=== PATIENT | female | born 1955 | race Caucasian/White ===

== ENCOUNTER 2018-11-29 15:17 | Inpatient (IN) ==
--- NOTE | 2018-11-29 21:18 | Internal Med History&Physical ---
Date of Encounter: 11/29/18 Time of Encounter: 21:18 Internal Medicine - H&P: HPI Chief complaint: Acute hypoxic respiratory failure Admitted From: Hospital to Hospital Transfer Plans for Post Hospital Care: Home History of present illness: Ms. Sal is a 63 year old female Patient presented to [facility] emergency department with worsening shortness of breath. 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 She is to start treatment on 12/02. She also has a history of COPD and congestive heart failure. She is oxygen dependent on 2-3 liters. She has needed more and more oxygen lately. She denies cough. Her shortness of breath began after she woke up in the morning. She is a 2 pack per day smoker. She has had similar symptoms in the past, and called an ambulance to take her to the hospital. Initial Labs at [facility]: Lactic acid 4.2 ->3.3 First ABG: PH 7.26, PCO2 52, PaO2 205 Second ABG: PH 7.4, PCO2 41, PO2 108 CBC: White count 18.8, hemoglobin 12.5, hematocrit 39, platelets 127 BMP: Sodium 135, potassium 4.7, chloride 98, bicarbonate 20, BUN 18, creatinine 0.95, glucose 377, calcium 8.7 Liver panel: Total bilirubin 0.6, albumin 3.1, alkaline phosphatase 75, AST 25, ALT 37 BNP 16,867.8 Troponin: 0.092 -> 0.25 (normal range 0.000- 0.056) Urinalysis: Negative nitrite, trace leukocyte esterase, 2+ bacteria, EKG: Sinus tachycardia rate 121 QTC 442. No ischemic changes Imaging CT angiogram chest: No evidence of pulmonary embolus, improved pericardial effusion, resolution of right pleural effusion and left upper lobe interstitial infiltrate, right upper lobe nodule and mediastinal hilar lymphadenopathy unchanged Patient was put on BiPAP and after 2 hours had improvement in her ABG. She is given IV steroids, breathing treatments, vancomycin and Zosyn. Patient's troponin increased, but she denies chest pain. She was given Lovenox. She has history of cancer, and sees oncology here at [place]. She requested transfer to [facility] for this reason. Upon my evaluation patient was resting comfortably in the hospital bed in no acute distress. She denies chest pain, abdominal pain, nausea, vomiting, diarr hea and constipation. She states that her symptoms have improved since she first arrived to the ER. She states that she has multiple family members with a diabetes, and her father had heart disease. She is a full code. Past Med Surg Social Fam HX - Past Medical History Medical history: atrial fibrillation, COPD, hypertension, myocardial infarction Psychiatric history: no psych history - Past Surgical History Additional surgical history: Tubal - Social History Smoking Status: Current every day smoker Alcohol use: none Drug use: none Internal Medicine - H&P: Meds Acetaminophen [Tylenol] 2 cap PO Q4-6H PRN 11/07/18 [History] Atorvastatin [Lipitor] 10 mg PO HS 11/07/18 [History] Budesonide/Formoterol 160/4.5 [Symbicort 160/4.5] 2 puff IH BIDR 11/07/18 [History] Diltiazem HCl [Diltiazem ER] 120 mg PO DAILY 11/07/18 [History] Duloxetine HCl [Cymbalta] 60 mg PO DAILY 11/07/18 [History] Folic Acid 1 mg PO DAILY #30 tablet 11/07/18 [Rx] Gabapentin 600 mg PO Q8H 11/07/18 [History] Ipratropium/Albuterol Neb [Duoneb] 3 ml IH QID PRN 11/07/18 [History] Lidocaine/Prilocaine [Emla] 1 appl TP AD #30 gm 11/07/18 [Rx] Metoprolol Succinate [Kapspargo Sprinkle] 25 mg PO BID 11/07/18 [History] Promethazine [Phenergan] 25 mg PO Q6HR PRN #30 tablet 11/07/18 [Rx] Sennosides/Docusate Sodium [Senna-Docusate Sodium Tablet] 1 each PO BID 11/07/18 [History] Fluconazole [Diflucan] 100 mg PO DAILY 10 Days #10 tablet 11/18/18 [Rx] Magic Mouthwash [Magic Mouthwash BLM] 10 ml PO QID PRN #240 ml 11/21/18 [Rx] Apixaban [Eliquis] 5 mg PO BID 30 Days #60 tablet 11/27/18 [Rx] Furosemide [Lasix] 20 mg PO DAILY #5 tablet 11/27/18 [Rx] Montelukast [Singulair] 10 mg PO HS 30 Days #30 tablet 11/27/18 [Rx] Tramadol HCl [Ultram] 50 mg PO TID PRN 15 Days #45 tab 11/27/18 [Rx] dilTIAZem HCl [Diltiazem 24Hr ER] 120 mg PO DAILY 30 Days #30 cap.er.24h 11/27/18 [Rx] Allergy/AdvReac Type Severity Reaction Status Date / Time No Known Allergies Allergy Verified 11/21/18 13:15 All Systems PM: A 10-system review of systems was performed and is negative for pertinent findings except as documented above in the HPI. - Constitutional Vitals: Temp Pulse Resp BP Pulse Ox 98.7 F 90 18 112/71 98 11/29/18 18:46 11/29/18 18:46 11/29/18 18:46 11/29/18 18:46 11/29/18 18:46 General appearance: Present: cooperative, A&O X 3, pleasant, no acute distress, answers questions appropriately Exam: - - Head Head exam: Present: normal inspection - Eye Eye exam: Present: EOMI, normal appearance - Respiratory Respiratory exam: Present: wheezes. Absent: CTAB, rales, respiratory distress, rhonchi - Cardiovascular Cardiovascular exam: Present: RRR. Absent: diastolic murmur, systolic murmur - GI/Abdominal GI/Abdominal exam: Present: normal bowel sounds, soft. Absent: tenderness - Extremities Exam Extremities exam: Present: pedal edema, warm, radial pulses palpable and symmetrical. Absent: calf tenderness, tenderness Additional comments: 1-2+ pitting edema bilaterally in lower extremities - Neurological Exam Neurological exam: Present: no focal deficits, strengths equal and symetr throughout. Absent: motor sensory deficit, facial droop, speech deficit - Skin Skin exam: Present: dry, normal color, warm - Assessment and Plan (1) Acute respiratory failure with hypoxia Current Visit: Yes Status: Acute Assessment and plan: Likely secondary to COPD exacerbation, patient has a significant history of smoking. Patient's symptoms improved with breathing treatments and BiPAP. Patient also has a known history of metastatic lung cancer. Lactic acid on repeat increased form Nell's values. Not suspicious of infection at this time, will hold off on antibiotics. I do not see that blood cultures were ordered at [facility], but she did received a dose of vanco and zosyn. I will order blood cultures now, and hold off on additional antibiotics. Imaging does not indicate infection of lungs. Repeat lactic acid level IV fluid hydration with care in regards to her suspected history of CHF Continue oxygen supplementation as needed Continue BiPAP Continue breathing treatments Start IV azithromycin IV steroids Continuous pulse ox (2) COPD exacerbation Current Visit: Yes Status: Acute Assessment and plan: Long history of smoking. Oxygen and BiPAP as needed Continue breathing treatments IV steroids IV azithromycin Continuous pulse ox (3) Elevated troponin Current Visit: Yes Status: Acute Assessment and plan: Troponin elevated at 0.25, patient denies chest pain, EKG non-ischemic. Likely secondary to demand ischemia. Patient did recently have a malignant pericardial effusion drained 10/27/18 as well. She was given a dose of lovenox for suspected NSTEMI. She does take eliquis at home for atrial fibrillation. Echocardiogram from 11/08/18: Impressions: Technically sub-optimal due to poor echocardiographic windows. LVEF 60-65%. Normal left ventricular diastolic function. Normal LV chamber size, wall thickness and function. The right ventricle was not well visualized but appeared grossly normal in size and function No evidence of pulmonary hypertension. No significant valvular dysfunction. Cardiac monitoring Continue to trend troponin Continue anticoagulation Cardiology consultation. (4) Chronic back pain Current Visit: Yes Status: Acute Assessment and plan: Pain management as needed. Qualifiers: Back pain location: low back pain Back pain laterality: bilateral Sciatica presence: unspecified whether sciatica present Qualified Code(s): M54.5 - Low back pain; G89.29 - Other chronic pain (5) Non-small cell lung cancer (NSCLC) Current Visit: No Status: Acute Assessment and plan: Management as per oncology Qualifiers: Laterality: unspecified laterality Qualified Code(s): C34.90 - Malignant neoplasm of unspecified part of unspecified bronchus or lung (6) Nicotine dependence Current Visit: Yes Status: Acute Assessment and plan: Patient is a heavy smoker up to 2 packs per day. She had been trying to quit, but after she was diagnosed with lung cancer, she restarted smoking. Nicotine patch Qualifiers: Nicotine product type: cigarettes Substance use status: other nicotine- induced disorder Qualified Code(s): F17.218 - Nicotine dependence, cigarettes, with other nicotine-induced disorders (7) Hyperglycemia Current Visit: Yes Status: Acute Assessment and plan: Patient denies history of diabetes. Elevated blood sugar on labs from Nell A1c in the AM Low dose sliding scale insulin NPO Monitor sugars Q6H (8) DVT prophylaxis Current Visit: Yes Status: Acute Assessment and plan: Patient given lovenox for suspected NSTEMI. Elevated troponin, with no ischemic changes on EKG. Continue lovenox - Time Spent With Patient Total time spent is greater than 50% in coordination of care (as documented) at patient's floor/unit and/or counseling patient: Greater than 35 minutes
[2018-11-29] MEDS ORDERED: Naloxone 0.4 MG/ML INJ IVP PRN (22:01)
[2018-11-29] MEDS ORDERED: Albuterol 2.5 MG/3 ML NEBULIZER IH PRN (22:06)
[2018-11-29] MEDS: Ipratropium/Albuterol Neb 3 ML IH SCH (22:36)
[2018-11-29] MEDS ORDERED: Acetaminophen 325 MG TABLET PO PRN (22:37)
[2018-11-29] MEDS ORDERED: 0.9 % Sodium Chloride 1,000 ML IVC ONE (22:55)
[2018-11-29] MEDS: Nicotine 21 MG PATCH.TD24 TD SCH (22:58)
[2018-11-29] MEDS: Azithromycin 500 MG in D5% in Water 250 ML IVPB SCH (22:59)
[2018-11-29] MEDS: MethylPREDNISolone 40 MG/ML VIAL IVP SCH (23:00)
[2018-11-29] MEDS: traMADol 50 MG TABLET PO PRN (23:00)
[2018-11-29] MEDS ORDERED: *HR* Dextrose 50 % in Water (Syg) 50 ML SYRINGE IVP PRN (23:38)
[2018-11-29] MEDS ORDERED: Dextrose Gel 15 GM/37.5 ML TUBE PO PRN ×2 (23:38)
[2018-11-29] MEDS ORDERED: D5% in Water 1,000 ML IVC PRN (23:38)
[2018-11-30] MEDS: Insulin LISPRO 300 UNITS/3 ML VIAL SQ SCH ×4 (01:14→18:03)
[2018-11-30] MEDS: Ipratropium/Albuterol Neb 3 ML IH SCH ×4 (04:17→22:32)
[2018-11-30] MEDS: MethylPREDNISolone 40 MG/ML VIAL IVP SCH ×4 (05:48→23:19)
[2018-11-30] MEDS ORDERED: *HR* Enoxaparin 80 MG/0.8 ML SYRINGE SQ SCH (06:00)
[2018-11-30 06:36] LABS: Hemoglobin 11.1 g/dL (11.5-15.4); Mean Corpuscular HGB Conc 32.6 g/dL (31.6-35.5); Mean Corpuscular Hemoglobin 31.6 pg (28.0-33.3); Mean Corpuscular Volume 96.9 fL (83.0-100.0); Red Blood Count 3.51 M/mcL (3.82-4.97); Red Cell Distribution Width 14.8 % (11.5-14.5); White Blood Count 6.9 K/mcL (4.3-11.1)
[2018-11-30 06:37] LABS: Platelet Count 59 K/mcL (140-400)
[2018-11-30 06:54] LABS: BUN/Creatinine Ratio 39 (6-26); Blood Urea Nitrogen 20 mg/dL (8-23); Calcium 9.2 mg/dL (8.6-10.3); Carbon Dioxide 26 mEq/L (23-29); Chloride 102 mEq/L (98-107); Glucose 196 mg/dL (70-105); Osmolality,Calculated 294 (280-300); Potassium 4.1 mEq/L (3.5-5.1); Sodium 138 mEq/L (136-145); eGFR For African Americans > 60 (> 60); eGFR For Non-African Americans > 60 (> 60)
[2018-11-30] MEDS: Nicotine 21 MG PATCH.TD24 TD SCH (08:07)
--- NOTE | 2018-11-30 09:00 | Cardiology Consult Note ---
<Osvaldo Peraza R - Last Filed: 11/30/18 09:39> Date of Encounter: 11/30/18 Time of Encounter: 08:59 Assessment and Plan (1) Elevated troponin Current Visit: Yes Status: Acute Troponins 0.18, 0.20--flat and adynamic. Type I vs Type II NSTEMI. Will trend for total of 3. Pt presented with worsening dyspnea. Check BNP. Denies chest pain. Has known lung cancer with metastasis to brain. Recently had a port placed to begin systemic chemotherapy. She is to start treatment on 12/02. TTE 11/08/18: EF 60-65%. Normal LVDD. Normal LV chamber size, wall thickness and function. The RV was not well visualized but appeared grossly normal in size and function. No evidence of phtn. No significant valvular dysfunction. Repeat limited TTE to evaluate EF. Prognosis is guarded given her lung cancer with mets. Reviewed oncology notes as well. Recommend considering palliative consult to discuss code status. Recommend medical management. Pt is not a candidate for invasive evaluation. PLT count 59k, thrombocytopenic. Will stop therapeutic Lovenox. Continue ASA. Add statin and BB. Will discuss and review with Dr. Guzman. Discussion w patient/family: The assessment and plan as outlined above was discussed with the patient and/or family members who expressed understanding and agreement. All questions were answered. Thank you for involving us in the care of your patient. Please call with any questions. I will discuss all the above with Dr. Guzman and make changes as necessary. History of Present Illness Consult date: 11/30/18 Requesting physician: Carlos Mercedes Consult reason: elevated troponin Chief complaint: dyspnea History of present illness: Ms. Sal is a 63 year old female with PMH of cancer of the lung with metastasis to brain, and recently had a port placed to begin systemic chemotherapy. She is to start treatment on 12/02. She also has a history of COPD and congestive heart failure. She is oxygen dependent on 2-3 liters. She has needed more and more oxygen lately. She denies cough. Her shortness of breath began after she woke up in the morning. She is a 2 pack per day smoker. CTA chest no evidence of pulmonary embolus, improved pericardial effusion, resolution of right pleural effusion and left upper lobe interstitial infiltrate, right upper lobe nodule and mediastinal hilar lymphadenopathy unchanged. Troponins 0.18, 0.20. Cardiology consulted for further recs. Pt denies chest pain. Prior CV testing: TTE 11/08/18: EF 60-65%. Normal left ventricular diastolic function. Normal LV chamber size, wall thickness and function. The RV was not well visualized but appeared grossly normal in size and function. No evidence of phtn. No significant valvular dysfunction. Past Med Surg Social Fam HX - Past Medical History Medical history: atrial fibrillation, COPD, hypertension, myocardial infarction Psychiatric history: no psych history - Past Surgical History Additional surgical history: Tubal - Social History Smoking Status: Current every day smoker Alcohol use: none Drug use: none Medications and Allergies Budesonide/Formoterol 160/4.5 [Symbicort 160/4.5] 2 puff IH BIDR 11/07/18 [History] Diltiazem HCl [Diltiazem ER] 120 mg PO DAILY 11/07/18 [History] Duloxetine HCl [Cymbalta] 60 mg PO DAILY 11/07/18 [History] Gabapentin 600 mg PO Q8H 11/07/18 [History] Ipratropium/Albuterol Neb [Duoneb] 3 ml IH QID PRN 11/07/18 [History] Promethazine [Phenergan] 25 mg PO Q6HR PRN #30 tablet 11/07/18 [Rx] Magic Mouthwash [Magic Mouthwash BLM] 10 ml PO QID PRN #240 ml 11/21/18 [Rx] Apixaban [Eliquis] 5 mg PO BID 30 Days #60 tablet 11/27/18 [Rx] Furosemide [Lasix] 20 mg PO DAILY #5 tablet 11/27/18 [Rx] Montelukast [Singulair] 10 mg PO HS 30 Days #30 tablet 11/27/18 [Rx] Tramadol HCl [Ultram] 50 mg PO TID PRN 15 Days #45 tab 11/27/18 [Rx] Losartan/Hydrochlorothiazide [Losartan-Hctz 50-12.5 mg Tab] 1 each PO DAILY 11/30/18 [History] Lovastatin [Altoprev] 40 mg PO DAILY 11/30/18 [History] Metoprolol [Lopressor] 25 mg PO DAILY 11/30/18 [History] Tizanidine HCl [Zanaflex] 2 mg PO Q8H PRN 11/30/18 [History] traZODone [TraZODone] 50 mg PO HS 11/30/18 [History] Allergy/AdvReac Type Severity Reaction Status Date / Time No Known Allergies Allergy Verified 11/30/18 13:31 All Systems Review: The remainder of the systems were reviewed and are negative - Cardiovascular Cardiovascular: as per HPI, dyspnea at rest, dyspnea on exertion - Respiratory Respiratory: dyspnea Physical Examination Vital Signs, Last 4 Hours Temp Pulse Resp BP Pulse Ox 11/30/18 07:55 98.6 F 85 16 139/75 100 11/30/18 05:20 97.6 F 72 20 125/66 100 Vital Signs Temp Pulse Resp BP Pulse Ox 11/30/18 07:55 98.6 F 85 16 139/75 100 11/30/18 05:20 97.6 F 72 20 125/66 100 11/30/18 04:17 14 100 11/30/18 02:37 13 100 11/30/18 00:52 96.7 F L 80 16 118/73 99 11/29/18 22:36 20 99 11/29/18 21:13 98 11/29/18 18:46 98.7 F 90 18 112/71 98 Intake and Output 11/29/18 11/30/18 11/30/18 23:59 07:59 15:59 Intake Total 0 / 250 1250 / 1250 Output Total 100 / 100 Balance 0 / 250 1250 / 1150 -100 / 1150 Intake: IV Fluids 1250 / 1250 0.9 % Sodium Chloride 1,000 ML 1000 / 1000 @ 250 mls/hr IVC .Q4H ONE Rx#: [id number] Zithromax 500 mg In Dextrose 5% 250 / 250 250 ML @ 252 mls/hr IVPB Q24H [facility] Rx#:[id number] Oral 0 / 0 0 / 0 Output: Urine 100 / 100 Other: Stool Size Large Stool Consistency formed Stool Color Brown # Voids 0 # Urine Diapers 1 1 # Bowel Movements 1 Weight 75.8 kg Blood Glucose* 209 General: Conversant HEENT: Atraumatic, Normocephaly, Mucus Membranes Moist Neck: No JVD, Normal carotid pulses Cardiac: Reg Rate and Rhythm, Normal S1 and S2, No Murmur Lungs: Other (diminished) Neuro: Alert and responsive, No focal deficits noted Abdomen: Soft, Non-Tender Skin: No rashes noted on visualized skin Musculoskeletal: No Chest Wall Tenderness Extremities: No Clubbing, No Cyanosis, No Edema, Normal Pulses Results 11/30/18 06:10 11/30/18 06:10 Lab Results 11/29/18 11/30/18 11/30/18 22:21 06:10 06:10 WBC 6.9 Hgb 11.1 L Hct 34.0 L Plt Count 59 L Sodium 138 Potassium 4.1 Chloride 102 Carbon Dioxide 26 BUN 20 Creatinine 0.51 L Glucose 196 H Calcium 9.2 Troponin I 0.18 H* 11/30/18 06:10 WBC Hgb Hct Plt Count Sodium Potassium Chloride Carbon Dioxide BUN Creatinine Glucose Calcium Troponin I 0.20 H* Short CBC 11/30/18 Range/Units 06:10 WBC 6.9 (4.3-11.1) K/mcL Hgb 11.1 L (11.5-15.4) g/dL Hct 34.0 L (35.3-44.9) % Plt Count 59 L (140-400) K/mcL BMP 11/30/18 Range/Units 06:10 Sodium 138 (136-145) mEq/L Potassium 4.1 (3.5-5.1) mEq/L Chloride 102 (98-107) mEq/L Carbon Dioxide 26 (23-29) mEq/L BUN 20 (8-23) mg/dL Creatinine 0.51 L (0.60-1.20) mg/dL Glucose 196 H (70-105) mg/dL Calcium 9.2 (8.6-10.3) mg/dL Cardiac Enzymes 11/30/18 11/29/18 Range/Units 06:10 22:21 Troponin I 0.20 H* 0.18 H* (< 0.04) ng/mL Active Medications Acetaminophen (Tylenol) 650 mg PO Q6HR PRN PRN Reason: Mild Pain/Fever Stop: 05/31/19 22:38 Albuterol Sulfate (Proventil Neb) 2.5 mg IH Q2H PRN PRN Reason: Shortness Of Breath/Wheezing Stop: 05/31/19 22:07 Albuterol/Ipratropium (Duoneb) 3 ml IH QIDR [facility] Stop: 05/31/19 23:01 Last Admin: 11/30/18 04:17 Dose: 3 ml Documented by: Albuterol/Ipratropium (Duoneb) 3 ml IH QID PRN PRN Reason: Wheezing Stop: 06/01/19 09:14 Aspirin (Aspirin) 81 mg PO DAILY IL[facility] Stop: 06/02/19 09:01 Budesonide/Formoterol Fumarate (Symbicort) 2 puff IH BIDR [facility]; Protocol Stop: 06/01/19 10:01 Dextrose/Water (Dextrose 50% (Syg)) 25 ml IVP AD PRN PRN Reason: Hypoglycemia Stop: 05/31/19 23:39 Enoxaparin Sodium (Lovenox) 70 mg SQ Q12HCO [facility]; Protocol Stop: 06/01/19 06:01 Last Admin: 11/30/18 05:48 Dose: 70 mg Documented by: Glucagon (Glucagen) 1 mg IM ONCE PRN PRN Reason: Hypoglycemia Stop: 05/31/19 23:39 Glucose (Gluctose) 15 gm PO ONCE PRN PRN Reason: Hypoglycemia Stop: 05/31/19 23:39 Glucose (Gluctose) 30 gm PO ONCE PRN PRN Reason: Hypoglycemia Stop: 05/31/19 23:39 Azithromycin 500 mg/ Dextrose 250 mls @ 252 mls/hr IVPB Q24H [facility] Stop: 05/31/19 23:01 Last Infusion: 11/30/18 00:00 Dose: Infused Documented by: Dextrose (Dextrose 5%) 1,000 mls @ 100 mls/hr IVC .Q10H PRN PRN Reason: HYPOGLYCEMIA Stop: 05/31/19 23:39 Sodium Chloride (0.9 % Sodium Chloride) 1,000 mls @ 75 mls/hr IVC .[id number] [facility] Stop: 06/01/19 09:16 Ceftriaxone Sodium 1,000 mg/ (Sterile Water) 20 mls @ 600 mls/hr IVP Q24H [facility] Stop: 06/01/19 10:01 Insulin Human Lispro (Humalog) 0 units SQ Q6HR [facility]; Protocol Stop: 06/01/19 00:01 Methylprednisolone (Solu-Medrol) 40 mg IVP Q6HR [facility] Stop: 06/01/19 00:01 Last Admin: 11/30/18 05:48 Dose: 40 mg Documented by: Montelukast Sodium (Singulair) 10 mg PO HS [facility] Stop: 06/01/19 21:01 Naloxone HCl (Narcan) 0.4 mg IVP Q2MPRN PRN PRN Reason: SEE COMMENTS Stop: 05/31/19 22:02 Nicotine (Nicoderm) 21 mg TD DAILY [facility] Stop: 05/31/19 22:16 Last Admin: 11/30/18 08:07 Dose: Not Given Documented by: Non-Formulary Medication (Diltiazem Hcl [Diltiazem Er]) 120 mg PO DAILY [facility] Stop: 06/01/19 09:16 Non-Formulary Medication (Duloxetine Hcl [Cymbalta]) 60 mg PO DAILY [facility] Stop: 06/02/19 09:01 Non-Formulary Medication (Metoprolol Succinate [Kapspargo Sprinkle]) 25 mg PO BID [facility] Stop: 06/01/19 21:01 Tramadol HCl (Ultram) 50 mg PO Q6HR PRN PRN Reason: Moderate Pain Stop: 05/31/19 22:38 Last Admin: 11/29/18 23:00 Dose: 50 mg Documented by: - Imaging and Cardiology Echo: report reviewed - EKG Interpretation EKG results cardiology: personally reviewed (Sinus tach), other (12 hr tele AVG HR 77, SR) Consult Discharge Plan - Plan Referrals: Yamel Quinn, TELEMETRY TECHNICIAN [Primary Care Provider] - <Sabine Guzman - Last Filed: 11/30/18 17:21> Date of Encounter: 11/30/18 - Attending Attestation Patient was seen and evaluated independently by me. Findings, assessment and plan were discussed at length with patient, questions answered. Agree with nurse practitioner's/resident's documentation. Addition as follows, 63yoCF ho lung cancer w/ brain mets, PAF, ischemic infarct on recent brain MRI , ? CAD/VT, DM, HTN, COPD. P/w worsening dyspnea and hypoxemia. Consulted for trop peak 0.2. Tele SR, PVCs. BNP 556. TTE EF 60-65% Pt denied chest pain, palpitations, dizziness, LE edema. NC 4L, VSS, scattered rhonchi, RR, no LE edema. Labs mild anemia A: Mild troponin elevation, type II likely PAF, C score 5, unclear whether taking eliquis, curently SR Both ischemic infarct and brain METs on recent brain MRI Lung cancer w/ brain mets PVCs P: repeat ECG limited Echo check with hemonc regarding A/C given C score 5 but brain mets Sabine Guzman MD, PhD Assessment and Plan Discussion w patient/family: The assessment and plan as outlined above was discussed with the patient and/or family members who expressed understanding and agreement. All questions were answered. Thank you for involving us in the care of your patient. Please call with any questions. History of Present Illness History of present illness: Ms. Sal is a 63 year old female All Systems Review: The remainder of the systems were reviewed and are negative Physical Examination Vital Signs, Last 4 Hours Temp Pulse Resp BP Pulse Ox 11/30/18 16:16 16 96 11/30/18 14:31 98.6 F 72 16 129/71 96 Results 11/30/18 06:10 11/30/18 06:10 Lab Results 11/29/18 11/30/18 11/30/18 22:21 06:10 06:10 WBC 6.9 Hgb 11.1 L Hct 34.0 L Plt Count 59 L Sodium 138 Potassium 4.1 Chloride 102 Carbon Dioxide 26 BUN 20 Creatinine 0.51 L Glucose 196 H Calcium 9.2 Troponin I 0.18 H* B-Natriuretic Peptide 11/30/18 11/30/18 11/30/18 06:10 06:10 13:37 WBC Hgb Hct Plt Count Sodium Potassium Chloride Carbon Dioxide BUN Creatinine Glucose Calcium Troponin I 0.20 H* 0.20 H* B-Natriuretic Peptide 556 H
[2018-11-30] MEDS ORDERED: Ipratropium/Albuterol Neb 3 ML IH PRN (09:13)
--- NOTE | 2018-11-30 09:18 | Internal Med Progress Note ---
Hospitalist Progress Note - Encounter Date of Encounter: 11/30/18 Time of Encounter: 09:18 - Subjective Interval History: Patient denies active chest pain with no active bleeding. Patient is hungry and asking for the food. She also appear slight agitated and not willing to talk much otherwise no acute distress. Review the lab with trending down lactate but trending up troponin. Raised BNP. Review the vitals. Patient denies fever chills nausea vomiting headache dizziness chest pain abdominal pain diarrhea. - Exam Vitals: Temp Pulse Resp BP Pulse Ox 98.6 F 85 16 139/75 100 11/30/18 07:55 11/30/18 07:55 11/30/18 07:55 11/30/18 07:55 11/30/18 07:55 Exam: General appearance: No acute distress, A&O X 3. Slight agitated upon asking medical health related question but is still answering few. Feel hungry and asking for the food Head exam: Atraumatic Eye exam: EOMI, PERRLA ENT exam: Moist oral mucosa Neck nontender, supple Respiratory exam: Decreased breath sounds bilaterally with rhonchi bilaterally. Cardiovascular exam: Regular rate and rhythm, no systolic murmur Abdominal exam: Soft, nontender, nondistended, positive bowel sounds Extremities exam: No calf tenderness, +1/2 bilateral pedal edema more on left side Skin-no rash, warm, dry, intact Neurological exam: Alert, awake, oriented 3, CN II-XII intact, no focal deficits. No facial droop. Normal speech. - Assessment and Plan (1) Acute respiratory failure with hypoxia Current Visit: Yes Status: Acute Assessment and Plan: Multiple factor. Likely secondary to COPD exacerbation, patient has a significant history of smoking/pneumonia, cardiac related as raised troponin Concern for sepsis due to raised lactate acid. Broader spectrum antibiotic vancomycin and Zosyn given at [facility]. On admission patient was on BiPAP but now on 2 L oxygen by nasal cannula. Continue IV steroid, oxygen supplementation, antibiotic Rocephin and Zithromax, nebulizer. Continuous pulse ox. (2) COPD exacerbation Current Visit: Yes Status: Acute Assessment and Plan: Long history of smoking.-Smoking cessation education Oxygen and BiPAP as needed Continue breathing treatments IV steroids IV azithromycin Continuous pulse ox (3) Elevated troponin Current Visit: Yes Status: Acute Assessment and Plan: Straightening of troponin levels. Adynamic flat. Possible NST AK. EKG with no ischemic change. Denies active chest pain. On admission Lovenox therapeutic dose was started. Consulted cardiology recommended medical management. Patient is not a candidate for invasive evaluation. Patient is thrombocytopenic therefore stopped therapeutic Lovenox and advised to continue aspirin beta josette statin. Repeat limited TTE to evaluate ejection fraction. Echocardiogram from 11/08/18: Impressions: Technically sub-optimal due to poor echocardiographic windows. LVEF 60-65%. Normal left ventricular diastolic function. Normal LV chamber size, wall thickness and function. The right ventricle was not well visualized but appeared grossly normal in size and function No evidence of pulmonary hypertension. No significant valvular dysfunction. Cardiac monitoring Continue to trend troponin Continue anticoagulation Cardiology consultation. (4) Chronic back pain Current Visit: Yes Status: Acute Assessment and Plan: Pain management as needed. (5) Nicotine dependence Current Visit: Yes Status: Acute Assessment and Plan: Patient is a heavy smoker up to 2 packs per day. She had been trying to quit, but after she was diagnosed with lung cancer, she restarted smoking. Nicotine patch. Smoking cessation education (6) Hyperglycemia Current Visit: Yes Status: Acute Assessment and Plan: Patient denies history of diabetes. Elevated blood sugar on labs from [facility] A1c pending. Change sliding scale medium coverages. Accu-Chek every before meals at bedtime. Diabetes diet. (7) Non-small cell lung cancer (NSCLC) Current Visit: No Status: Acute Assessment and Plan: Metastatic adenocarcinoma of the lung. Recently diagnosed few weeks ago. Patient supposed to have radiotherapy next week. Patient was seen by oncologist Dr. Alvarado and placed on board but no active chemotherapy at this time. Will consult oncologist if needed. Palliative care team also consulted to discuss CODE STATUS (8) CHF exacerbation Current Visit: Yes Status: Acute Assessment and Plan: No history of CHF. Patient presented with shortness of breath pedal edema raised BNP. Chest x-ray not available. Repeat limited echo ordered. Will start Lasix, a strict I&O's daily weight. (9) Atrial fibrillation Current Visit: Yes Status: Acute Assessment and Plan: Rate is controlled. Continue home medicine diltiazem and Eliquis. (10) DVT prophylaxis Current Visit: Yes Status: Acute Assessment and Plan: Continue home dose Eliquis - Time Spent with Patient Total time spent is greater than 50% in coordination of care (as documented) at patient's floor/unit and/or counseling patient: Greater than 35 minutes Plan of Care Discussed with: patient Internal Medicine: Result - Labs CBC & Chem 7: 11/30/18 06:10 11/30/18 06:10 Labs: Short CBC 11/30/18 Range/Units 06:10 WBC 6.9 (4.3-11.1) K/mcL Hgb 11.1 L (11.5-15.4) g/dL Hct 34.0 L (35.3-44.9) % Plt Count 59 L (140-400) K/mcL BMP 11/30/18 06:10 Sodium 138 Potassium 4.1 Chloride 102 Carbon Dioxide 26 BUN 20 Creatinine 0.51 L Glucose 196 H Calcium 9.2 Cardiac Enzymes 11/29/18 11/30/18 Range/Units 22:21 06:10 Troponin I 0.18 H* 0.20 H* (< 0.04) ng/mL Consult Discharge Plan - Plan Referrals: Yamel Quinn [employer]TER [Primary Care Provider] - (4) Chronic back pain Qualifiers: Back pain location: low back pain Back pain laterality: bilateral Sciatica presence: unspecified whether sciatica present Qualified Code(s): M54.5 - Low back pain; G89.29 - Other chronic pain (5) Nicotine dependence Qualifiers: Nicotine product type: cigarettes Substance use status: other nicotine- induced disorder Qualified Code(s): F17.218 - Nicotine dependence, cigarettes, with other nicotine-induced disorders (7) Non-small cell lung cancer (NSCLC) Qualifiers: Laterality: unspecified laterality Qualified Code(s): C34.90 - Malignant neoplasm of unspecified part of unspecified bronchus or lung (8) CHF exacerbation Qualifiers: Heart failure type: unspecified Qualified Code(s): I50.9 - Heart failure, unspecified (9) Atrial fibrillation Qualifiers: Atrial fibrillation type: chronic Qualified Code(s): I48.2 - Chronic atrial fibrillation
[2018-11-30] MEDS ORDERED: Metoprolol XL (24 HR) Succ 25 MG TAB.ER.24H PO SCH (10:00)
[2018-11-30] MEDS: Diltiazem CD (24hr) 120 MG CAPSULE PO SCH (10:23)
[2018-11-30] MEDS: 0.9 % Sodium Chloride 1,000 ML IVC SCH (10:23)
[2018-11-30] MEDS: cefTRIAXone 1,000 MG in Water for inj. (sterile) 20 ML 10 ML IVP SCH (10:23)
[2018-11-30] MEDS: Metoprolol XL (24 HR) Succ 25 MG TAB.ER.24H PO SCH ×2 (10:35→21:48)
[2018-11-30] MEDS: traMADol 50 MG TABLET PO PRN ×2 (10:35→21:50)
[2018-11-30 10:40] LABS: ABG Base Excess 4 mEq/L (-2 to 3); ABG HCO3 28 mEq/L (21-27); ABG Oxygen Saturation 96 % (95-98); ABG PCO2 41 mmHg (35-45); ABG PH 7.45 pH Units (7.32-7.45); ABG PO2 78 mmHg (85-104); ABG TCO2 30 mEq/L (20-26)
[2018-11-30] MEDS: Budesonide/Formoterol 160/4.5 1 PUFF INH IH SCH ×2 (11:17→22:33)
--- NOTE | 2018-11-30 13:19 | Palliative - Consult Note ---
Date of Encounter: 11/30/18 Time of Encounter: 12:30 - Assessment and Plan (1) Non-small cell lung cancer (NSCLC) Current Visit: No Status: Acute Assessment and plan: Oncology consult pending. Patient desires to continue with current plan to start chemo with [facility] 12/02/18. Patient verbalized this cancer is uncurable, but feels this is her best option of allowing her more time. Qualifiers: Laterality: unspecified laterality Qualified Code(s): C34.90 - Malignant neoplasm of unspecified part of unspecified bronchus or lung (2) Acute respiratory failure with hypoxia Current Visit: Yes Status: Acute Assessment and plan: Oxygen saturation 98% on 2L. Continue Oxygen therapy. (3) COPD exacerbation Current Visit: Yes Status: Acute (4) Elevated troponin Current Visit: Yes Status: Acute Assessment and plan: Cardiology consulted. Patient is not a surgical candidate. Medical Management only. (5) Goals of care, counseling/discussion Current Visit: Yes Status: Acute Assessment and plan: Conducted thorough review of medical record and completed comprehensive goals of care assessment with patient. Patient desires to designate Gladys Bailon [phone] as her MPOA, will complete forms tomorrow. Patient wants to continue plan with Dr. Lou to start Chemotherapy on Sunday. Patient desires to remain FULL CODE, wants CPR and short term inbutation if medically necessary. Desires against skilled nursing inbutation/trach. Patient reports she would be ok with PEG tube placement. Patient reports she wants to return home at discharge with Gladys as 08/01 caregiver. Patient reports she has Passport and Home Health established through [facility] in [place]. Patient adamant against residential zeeshan mustafa. Updated Dr. Berumen with results of this discussion. Palliative care will follow up tomorrow to ensure no further questions with patient, per established agreement, and complete MPOA forms. (6) Palliative care encounter Current Visit: Yes Status: Acute Palliative-CN HPI - Data of Consult Patient: new to practice Consult date: 11/30/18 Requesting Physician: Lucy Bland Primary Care Provider: DARIEN Lombardi - Consult Narrative Palliative Care/Comfort Measures: Palliative care Reason for consult: Discussion on CODE STATUS History of present illness: Ms. Sal is a 63 year old female arrived to [facility] as a transfer from [facility] on 11/29/18. While at [facility], patient found to have elevated Troponins and NSTEMI, transferred for Cardiology evaluation for potential intervention, per patient request. PMH: Non Small Cell Lung Cancer (incurable, per [facility] note), COPD (2-3L O2 Dependent), CHF, 2 ppd smoker. Patient recently had port placed for initiation of chemo therapy, set to begin on 12/02/18. Admitted and medically managed for Acute Respiratory failure with hypoxia, COPDE, elevated troponins, Chronic back pain, Nicotine dependence, hyperglycemia, non small cell lung cancer, CHFE, and afib. Cardiology consulted and reports patient is not a surgical candidate, noting patient's guarded prognosis for lung cancer, decreased platelets. Palliative care consult regarding CODE STATUS, as patient is a FULL CODE. Oncology consult pending. Patient sitting up in bed upon arrival for assessment. Patient is alert and oriented times 3. No family present. Patient denies pain, anxiety, nausea, vomiting, and dyspnea. CC: Lucy Bland - Time Spent with Patient Time: Total time spent is greater than 50% in coordination of care (as documented) at patient's floor/unit and/or counseling patient: Time with patient: 45 minutes Past Med Surg Social Fam HX - Past Medical History Medical history: atrial fibrillation, COPD, hypertension, myocardial infarction Psychiatric history: no psych history - Past Surgical History Additional surgical history: Tubal - Social History Smoking Status: Current every day smoker Alcohol use: none Drug use: none Medications and Allergies Acetaminophen [Tylenol] 2 cap PO Q4-6H PRN 11/07/18 [History] Atorvastatin [Lipitor] 10 mg PO HS 11/07/18 [History] Budesonide/Formoterol 160/4.5 [Symbicort 160/4.5] 2 puff IH BIDR 11/07/18 [History] Diltiazem HCl [Diltiazem ER] 120 mg PO DAILY 11/07/18 [History] Duloxetine HCl [Cymbalta] 60 mg PO DAILY 11/07/18 [History] Folic Acid 1 mg PO DAILY #30 tablet 11/07/18 [Rx] Gabapentin 600 mg PO Q8H 11/07/18 [History] Ipratropium/Albuterol Neb [Duoneb] 3 ml IH QID PRN 11/07/18 [History] Lidocaine/Prilocaine [Emla] 1 appl TP AD #30 gm 11/07/18 [Rx] Metoprolol Succinate [Kapspargo Sprinkle] 25 mg PO BID 11/07/18 [History] Promethazine [Phenergan] 25 mg PO Q6HR PRN #30 tablet 11/07/18 [Rx] Sennosides/Docusate Sodium [Senna-Docusate Sodium Tablet] 1 each PO BID 11/07/18 [History] Fluconazole [Diflucan] 100 mg PO DAILY 10 Days #10 tablet 11/18/18 [Rx] Magic Mouthwash [Magic Mouthwash BLM] 10 ml PO QID PRN #240 ml 11/21/18 [Rx] Apixaban [Eliquis] 5 mg PO BID 30 Days #60 tablet 11/27/18 [Rx] Furosemide [Lasix] 20 mg PO DAILY #5 tablet 11/27/18 [Rx] Montelukast [Singulair] 10 mg PO HS 30 Days #30 tablet 11/27/18 [Rx] Tramadol HCl [Ultram] 50 mg PO TID PRN 15 Days #45 tab 11/27/18 [Rx] dilTIAZem HCl [Diltiazem 24Hr ER] 120 mg PO DAILY 30 Days #30 cap.er.24h 06/05 [Rx] Lovastatin [Altoprev] 40 mg PO DAILY 11/30/18 [History] Tizanidine HCl [Zanaflex] 2 mg PO Q8H PRN 11/30/18 [History] traZODone [TraZODone] 50 mg PO HS 11/30/18 [History] Allergy/AdvReac Type Severity Reaction Status Date / Time No Known Allergies Allergy Verified 11/21/18 13:15 - Constitutional Constitutional ROS PAL: no decreased appetite, no fatigue, no frequent falls, no lethargy, no weight loss - Cardiovascular Cardiovascular ROS: chest pain, chest pain at rest, chest pain with activity, dyspnea on exertion, no pedal edema - Respiratory Respiratory: dyspnea, dyspnea on exertion, no excessive phlegm production - Psychiatric Psychiatric general PM: no anxiety Palliative Care-Exam - Constitutional Vitals: Temp Pulse Resp BP Pulse Ox 98.5 F 92 16 147/73 98 11/30/18 10:59 11/30/18 10:59 11/30/18 11:17 11/30/18 10:59 11/30/18 11:17 General appearance: Present: mild distress (tearful ) - Head Head Exam: Present: atraumatic, normal inspection - Eye Eye exam: Present: normal appearance. Absent: periorbital swelling, periorbital tenderness - ENT ENT exam: Present: mucous membranes moist - Neck Neck exam: Present: full ROM, normal inspection - Respiratory Respiratory exam: Present: accessory muscle use, rhonchi. Absent: CTAB - Cardiovascular Cardiovascular exam: Present: +S1, +S2 - Expanded Cardiovascular Exam Peripheral pulses: 2+: Radial (L), Radial (R), Posterior Tibialis (L), Posterior Tibialis (R), Dorsalis Pedis (L) PM, Dorsalis Pedis (R) PM - GI/Abdominal Exam GI/Abdominal exam: Present: diminished bowel sounds, distended, soft. Absent: tenderness - Rectal Rectal exam: Present: deferred - Extremities Exam Extremities exam: Present: full ROM, normal inspection. Absent: calf tenderness, pedal edema - Back Exam Back exam: Present: normal inspection - Neurological Exam Neurological exam: Present: alert, normal gait (with assistance), oriented X3, strengths equal and symetr throughout. Absent: altered - Expanded Neurological Exam Coma Scale Eye Opening: Spontaneous Coma Scale Motor Response: Obeys Commands Coma Scale Verbal Response: Oriented Coma Scale Total: 15 - Psychiatric Psychiatric exam: Present: normal affect, normal mood - Skin Skin exam: Present: dry, intact, normal color, warm Internal Medicine - CN: Reslt - Labs CBC & Chem 7: 11/30/18 06:10 11/30/18 06:10 Labs: Short CBC 11/30/18 Range/Units 06:10 WBC 6.9 (4.3-11.1) K/mcL Hgb 11.1 L (11.5-15.4) g/dL Hct 34.0 L (35.3-44.9) % Plt Count 59 L (140-400) K/mcL BMP 11/30/18 06:10 Sodium 138 Potassium 4.1 Chloride 102 Carbon Dioxide 26 BUN 20 Creatinine 0.51 L Glucose 196 H Calcium 9.2 Cardiac Enzymes 11/29/18 11/30/18 Range/Units 22:21 06:10 Troponin I 0.18 H* 0.20 H* (< 0.04) ng/mL - ABG Interpretation ABG results: ABG ABG pH 7.45 pH Units (7.32-7.45) 11/30/18 10:38 ABG pCO2 41 mmHg (35-45) 11/30/18 10:38 ABG pO2 78 mmHg (85-104) L 11/30/18 10:38 ABG O2 Saturation 96 % (95-98) 11/30/18 10:38 Consult Discharge Plan - Plan Referrals: Yamel Quinn INTEGRATIVE MEDICINE PHYSICIAN [Primary Care Provider] - Palliative Quality Palliative Quality: Screen for Code Status: Yes, Screen for Goals of Care: Yes, Screen for Pain: Yes, If Pain Regimen Started, Initiate Bowel Regimen: NA, Screen for Nausea/Vomitting: Yes Code Status: 11/29/18 22:01 Resuscitation Status: Active [RES] Routine Comment: Resuscitation Status: Full Code Palliative Scale - Palliative Performance Scale How ambulatory is this patient?: Mainly sit / lie What is patient's level of activity and evidence of disease?: Unable hobby/housework, Significant disease How much self-care assistance does patient require?: Considerable assistance required How much oral intake does the patient have?: Normal or reduced What is this patient's level of consciousness?: Full or confusion Palliative Performance Score: 70 %
[2018-11-30 13:22] LABS: Estimated Average Glucose 206 mg/dl
[2018-11-30] MEDS: Gabapentin 300 MG CAPSULE PO SCH ×2 (17:56→21:48)
[2018-11-30] MEDS ORDERED: *HR* Heparin 5,000 UNIT/ML VIAL SQ SCH (18:00)
[2018-11-30] MEDS: Apixaban 5 MG TABLET PO SCH (21:47)
[2018-11-30] MEDS: Azithromycin 500 MG in D5% in Water 250 ML IVPB SCH (23:20)
[2018-12-01] MEDS: Insulin LISPRO 300 UNITS/3 ML VIAL SQ SCH ×4 (00:33→18:16)
[2018-12-01 04:03] LABS: Hematocrit 31.2 % (35.3-44.9); Immature Granulocytes % 1.8 % (0-4); Immature Platelets 5.4 % (1.1-6.1); Lymphocytes # 0.6 K/mcL (0.6-4.6); Lymphocytes % 8.4 %; Mean Corpuscular HGB Conc 32.1 g/dL (31.6-35.5); Mean Corpuscular Hemoglobin 31.5 pg (28.0-33.3); Mean Corpuscular Volume 98.4 fL (83.0-100.0); Mean Platelet Volume 11.1 fL (9.4-12.4); Monocytes # 0.2 K/mcL (0.0-1.3); Monocytes % 2.2 %; Nucleated Red Blood Cells 0.4 /100 WBC (0); Red Blood Count 3.17 M/mcL (3.82-4.97); Red Cell Distribution Width 14.8 % (11.5-14.5); Segmented Neutrophils % 87.6 %; White Blood Count 6.7 K/mcL (4.3-11.1)
[2018-12-01 04:14] LABS: Neutrophils # 5.9 K/mcL (1.6-8.9); Platelet Count 58 K/mcL (140-400)
[2018-12-01 04:22] LABS: BUN/Creatinine Ratio 39 (6-26); Blood Urea Nitrogen 30 mg/dL (8-23); Carbon Dioxide 24 mEq/L (23-29); Chloride 101 mEq/L (98-107); Glucose 238 mg/dL (70-105); Osmolality,Calculated 296 (280-300); Sodium 136 mEq/L (136-145); eGFR For African Americans > 60 (> 60); eGFR For Non-African Americans > 60 (> 60)
[2018-12-01] MEDS: Ipratropium/Albuterol Neb 3 ML IH SCH ×4 (04:30→22:05)
[2018-12-01] MEDS: MethylPREDNISolone 40 MG/ML VIAL IVP SCH ×2 (06:21→18:17)
--- NOTE | 2018-12-01 08:57 | Event Note ---
Date of Encounter: 12/01/18 Time of Encounter: 08:55 - Cardiology Event Note Limited TTE EF 65%, normal wall motion. Troponins remain flat--0.18, 0.20, 0.20, likely demand ischemia. CXR Patchy right lung base pulmonary opacity may represent atelectasis, pneumonia, and/or aspiration. No pleural effusions or pulmonary edema. IV Lasix not warranted. Regarding Eliquis for PAF, hospitalist restarted. Would recommend discussing with oncology given thrombocytopenia, brain mets and bleeding risk. Cardiology signing off. Reconsult PRN.
[2018-12-01] MEDS ORDERED: Furosemide 20 MG/2 ML VIAL IVP SCH (09:00)
[2018-12-01] MEDS: cefTRIAXone 1,000 MG in Water for inj. (sterile) 20 ML 10 ML IVP SCH (09:31)
[2018-12-01] MEDS: Apixaban 5 MG TABLET PO SCH (09:31)
[2018-12-01] MEDS: Gabapentin 300 MG CAPSULE PO SCH ×3 (09:31→20:23)
[2018-12-01] MEDS: Metoprolol XL (24 HR) Succ 25 MG TAB.ER.24H PO SCH (09:31)
[2018-12-01] MEDS: Aspirin 81 MG TAB.CHEW PO SCH (09:31)
[2018-12-01] MEDS: Diltiazem CD (24hr) 120 MG CAPSULE PO SCH (09:31)
[2018-12-01] MEDS: Nicotine 21 MG PATCH.TD24 TD SCH (09:32)
[2018-12-01] MEDS: Budesonide/Formoterol 160/4.5 1 PUFF INH IH SCH ×2 (10:46→22:05)
--- NOTE | 2018-12-01 10:47 | Internal Med Progress Note ---
Hospitalist Progress Note - Encounter Date of Encounter: 12/01/18 Time of Encounter: 10:47 - Subjective Interval History: No acute event overnight. Review the lab elevated lactate but is trending down, elevated blood glucose level, trending down titrate. Reviewed the vitals Patient denies fever or chills nausea vomiting headache dizziness abdominal pain diarrhea urinary complaint no active bleeding. Denies chest pain shortness of breath better - Exam Vitals: Temp Pulse Resp BP Pulse Ox 98.0 F 61 18 113/61 100 12/01/18 07:20 12/01/18 07:20 12/01/18 07:20 12/01/18 07:20 12/01/18 04:30 Exam: General appearance: No acute distress, A&O X 3. Eye exam: EOMI, PERRLA ENT exam: Moist oral mucosa Neck nontender, supple Respiratory exam: Decreased breath sounds bilaterally with rhonchi bilaterally- better. Cardiovascular exam: Regular rate and rhythm, no systolic murmur Abdominal exam: Soft, nontender, nondistended, positive bowel sounds Extremities exam: No calf tenderness, +1 bilateral pedal edema more on left side Skin-no rash, warm, dry, intact Neurological exam: Alert, awake, oriented 3, CN II-XII intact, no focal deficits. No facial droop. Normal speech. - Assessment and Plan (1) Acute respiratory failure with hypoxia Current Visit: Yes Status: Acute Assessment and Plan: Improving. Multiple factor. Likely secondary to COPD exacerbation, patient has a significant history of smoking/pneumonia, cardiac related as raised troponin Concern for sepsis due to raised lactate acid. Broader spectrum antibiotic vancomycin and Zosyn given at [facility]. On admission patient was on BiPAP but now on 2 L oxygen by nasal cannula. Continue IV steroid, oxygen supplementation, antibiotic Rocephin and Zithromax, nebulizer. Continuous pulse ox. Repeat lactate is still elevated but trending down. Continue to monitor patient. Plan for discharge and 1-2 days if patient continues to improve. (2) COPD exacerbation Current Visit: Yes Status: Acute Assessment and Plan: Long history of smoking.-Smoking cessation education Oxygen and BiPAP as needed Continue breathing treatments IV steroids-tapering down IV azithromycin Continuous pulse ox (3) Elevated troponin Current Visit: Yes Status: Acute Assessment and Plan: Elevated troponin levels. Adynamic flat. Possible NST WI. EKG with no ischemic change. Denies active chest pain. On admission Lovenox therapeutic dose was started. Consulted cardiology recommended medical management. Patient is not a candidate for invasive evaluation. Patient is thrombocytopenic therefore stopped therapeutic Lovenox and advised to continue aspirin beta josette statin. Repeat limited TTE to evaluate ejection fraction. Impressions: LVEF 65%. Normal right ventricular structure and function. Left Ventricular Wall Motion: Rest Echo Findings All wall segments showed normal motion. Echocardiogram from 11/08/18: Impressions: Technically sub-optimal due to poor echocardiographic windows. LVEF 60-65%. Normal left ventricular diastolic function. Normal LV chamber size, wall thickness and function. The right ventricle was not well visualized but appeared grossly normal in size and function No evidence of pulmonary hypertension. No significant valvular dysfunction. Cardiac monitoring Continue to trend troponin Continue anticoagulation Cardiology consultation. (4) Chronic back pain Current Visit: Yes Status: Acute Assessment and Plan: Pain management as needed. (5) Nicotine dependence Current Visit: Yes Status: Acute Assessment and Plan: Patient is a heavy smoker up to 2 packs per day. She had been trying to quit, but after she was diagnosed with lung cancer, she restarted smoking. Nicotine patch. Smoking cessation education given (6) Hyperglycemia Current Visit: Yes Status: Acute Assessment and Plan: Patient denies history of diabetes. Elevated blood sugar on labs from [facility] newly diagnosed diabetes mellitus -A1c 8.8 Continue sliding scale medium coverages. Levemir 10 units daily at bedtime. consider OHA at the time of discharge. Diabetes education. Accu-Chek every before meals at bedtime. Diabetes diet. (7) Non-small cell lung cancer (NSCLC) Current Visit: No Status: Acute Assessment and Plan: Metastatic adenocarcinoma of the lung. Recently diagnosed few weeks ago. Patient supposed to have radiotherapy tomorrow. Patient was seen by oncologist Dr. Alvarado and placed the port but no active chemotherapy at this time. consulted oncologist Palliative care team also consulted to discuss CODE STATUS- full code (8) CHF exacerbation Current Visit: Yes Status: Acute Assessment and Plan: No history of CHF. Patient presented with shortness of breath pedal edema raised BNP. Chest x-ray not available. continue Lasix, a strict I&O's daily weight. Limited" with preserved EF 65% normal ventricular function. (9) Atrial fibrillation Current Visit: Yes Status: Acute Assessment and Plan: Rate is controlled. Continue home medicine diltiazem . 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 Discussed with volunteer services director (10) Diabetes mellitus Current Visit: Yes Status: Acute Assessment and Plan: A1c 8.8. Newly diagnosed. As mentioned above (11) DVT prophylaxis Current Visit: Yes Status: Acute Assessment and Plan: SCDs - Time Spent with Patient Total time spent is greater than 50% in coordination of care (as documented) at patient's floor/unit and/or counseling patient: 25 - 35 minutes Plan of Care Discussed with: patient Internal Medicine: Result - Labs CBC & Chem 7: 12/01/18 03:30 12/01/18 03:30 Labs: Short CBC 12/01/18 Range/Units 03:30 WBC 6.7 (4.3-11.1) K/mcL Hgb 10.0 L (11.5-15.4) g/dL Hct 31.2 L (35.3-44.9) % Plt Count 58 L (140-400) K/mcL Neutrophils # 5.9 (1.6-8.9) K/mcL BMP 12/01/18 03:30 Sodium 136 Potassium 4.0 Chloride 101 Carbon Dioxide 24 BUN 30 H Creatinine 0.77 Glucose 238 H Calcium 9.0 Cardiac Enzymes 11/30/18 Range/Units 13:37 Troponin I 0.20 H* (< 0.04) ng/mL - ABG Interpretation ABG results: ABG ABG pH 7.45 pH Units (7.32-7.45) 11/30/18 10:38 ABG pCO2 41 mmHg (35-45) 11/30/18 10:38 ABG pO2 78 mmHg (85-104) L 11/30/18 10:38 ABG O2 Saturation 96 % (95-98) 11/30/18 10:38 - Impressions Impressions Chest X-Ray 11/30/18 09:12 IMPRESSION: Patchy right lung base pulmonary opacity may represent atelectasis, pneumonia, and/or aspiration. Recommend radiographic follow-up to complete resolution. Findings suggestive of COPD. D/ / 11/30/2018 16:43:46 Demetri Dooley MD / lynda Interpreting Provider: Demetri Dooley MD Echocardiogram Limited Views 11/30/18 09:54 Impressions: LVEF 65%. Normal right ventricular structure and function. Left Ventricular Wall Motion: Rest Echo Findings All wall segments showed normal motion. Findings: Study Quality * Technically adequate exam. ECG Findings * Sinus rhythm with PVCs. Left Ventricle * LVEF 65%. * Normal LV chamber size, wall thickness and systolic function. Right Ventricle * Normal right ventricular structure and function. Left Atrium * Normal left atrial size. Right Atrium * Normal right atrial size. IVC * The IVC is dilated. * > 50% respiratory change Consult Discharge Plan - Plan Referrals: Yamel Quinn FISH FLIPPER [Primary Care Provider] - (4) Chronic back pain Qualifiers: Back pain location: low back pain Back pain laterality: bilateral Sciatica presence: unspecified whether sciatica present Qualified Code(s): M54.5 - Low back pain; G89.29 - Other chronic pain (5) Nicotine dependence Qualifiers: Nicotine product type: cigarettes Substance use status: other nicotine- induced disorder Qualified Code(s): F17.218 - Nicotine dependence, cigarettes, with other nicotine-induced disorders (7) Non-small cell lung cancer (NSCLC) Qualifiers: Laterality: unspecified laterality Qualified Code(s): C34.90 - Malignant neoplasm of unspecified part of unspecified bronchus or lung (8) CHF exacerbation Qualifiers: Heart failure type: diastolic Qualified Code(s): I50.33 - Acute on chronic diastolic (congestive) heart failure (9) Atrial fibrillation Qualifiers: Atrial fibrillation type: chronic Qualified Code(s): I48.2 - Chronic atrial fibrillation (10) Diabetes mellitus Qualifiers: Diabetes mellitus type: type 2 Diabetes mellitus schedule manager insulin use: without schedule manager use Diabetes mellitus complication status: without complication Qualified Code(s): E11.9 - Type 2 diabetes mellitus without complications
[2018-12-01] MEDS: traMADol 50 MG TABLET PO PRN (11:58)
--- NOTE | 2018-12-01 12:19 | Palliative Progress Note ---
Date of Encounter: 12/01/18 Time of Encounter: 09:45 - Assessment and plan (1) Non-small cell lung cancer (NSCLC) Current Visit: No Status: Acute Assessment and plan: Patient desires to proceed with outpatient oncology treatment. Qualifiers: Laterality: unspecified laterality Qualified Code(s): C34.90 - Malignant neoplasm of unspecified part of unspecified bronchus or lung (2) Acute respiratory failure with hypoxia Current Visit: Yes Status: Acute Assessment and plan: Patient's oxygen saturation 100% on 2 L. (3) COPD exacerbation Current Visit: Yes Status: Acute (4) Elevated troponin Current Visit: Yes Status: Acute Assessment and plan: Cardiology consult; medical management. (5) Goals of care, counseling/discussion Current Visit: Yes Status: Acute Assessment and plan: Patient desired to complete medical power of program eligibility specialist forms. Assistance provided in completion of forms. Copies made and given to patient. Copy was also placed in file. Met with Dr. Berumen. Discharge plan as early as tomorrow home. Discharge plan established. No symptom management. Palliative care will sign off. Please re-consult as needed. Thank you for this consult. (6) Palliative care encounter Current Visit: Yes Status: Acute - Time Spent With Patient Total time spent is greater than 50% in coordination of care (as documented) at patient's floor/unit and/or counseling patient: - Subjective Interval history: Patient sitting up in bed upon arrival. Patient is alert and oriented 3. D enies pain, anxiety, nausea, and vomiting. Patient report she had chest gotten off the phone with Gladys, personal friend, discussing and POA papers. - Constitutional Vitals: Abnormal lab results RBC 3.17 M/mcL (3.82-4.97) L 12/01/18 03:30 Hgb 10.0 g/dL (11.5-15.4) L 12/01/18 03:30 Hct 31.2 % (35.3-44.9) L 12/01/18 03:30 RDW 14.8 % (11.5-14.5) H 12/01/18 03:30 Plt Count 58 K/mcL (140-400) L 12/01/18 03:30 Nucleated RBCs/100 WBC 0.4 /100 WBC (0) H 12/01/18 03:30 ABG pO2 78 mmHg (85-104) L 11/30/18 10:38 ABG HCO3 28 mEq/L (21-27) H 11/30/18 10:38 ABG Total CO2 30 mEq/L (20-26) H 11/30/18 10:38 ABG Base Excess 4 mEq/L (-2 to 3) H 11/30/18 10:38 BUN 30 mg/dL (8-23) H 12/01/18 03:30 0.51 mg/dL (0.60-1.20) L 11/30/18 06:10 39 (6-26) H 12/01/18 03:30 Glucose 238 mg/dL (70-105) H 12/01/18 03:30 POC Glucose 384 mg/dL (70-99) H 12/01/18 00:29 8.8 % (-5.6) H 11/30/18 06:10 Lactic Acid 2.3 mmol/L (0.5-2.2) H 12/01/18 08:13 0.20 ng/mL (< 0.04) H* 11/30/18 13:37 B-Natriuretic Peptide 556 pg/mL (Less than 100) H 11/30/18 06:10 General appearance: Present: cooperative, no acute distress - Head Head exam: Present: normal inspection - Eye Eye exam: Present: normal appearance - Neck Neck exam: Present: full ROM, normal inspection - Respiratory Respiratory exam: Present: decreased breath sounds, CTAB - Cardiovascular Cardiovascular exam: Present: +S1, +S2 - Rectal Rectal exam: Present: deferred - Extremities Exam Extremities exam: Present: pedal edema - Back Exam Back exam: Present: normal inspection - Neurological Exam Neurological exam: Present: alert, oriented X3. Absent: altered Palliative Quality Palliative Quality: Screen for Code Status: Yes, Screen for Goals of Care: Yes, Screen for Pain: Yes, If Pain Regimen Started, Initiate Bowel Regimen: NA, Screen for Nausea/Vomitting: Yes Code Status: 11/29/18 22:01 Resuscitation Status: Active [RES] Routine Comment: Resuscitation Status: Full Code - Labs CBC & Chem 7: 12/01/18 03:30 12/01/18 03:30 Labs: Laboratory Results - last 24 hr 11/30/18 11/30/18 11/30/18 05:29 06:10 11:53 WBC RBC Hgb Hct MCV MCH MCHC RDW Plt Count MPV Immature Gran % Seg Neutrophils % Lymphocytes % Monocytes % Eosinophils % Basophils % Neutrophils # Lymphocytes # Monocytes # Eosinophils # Basophils # Nucleated RBCs/100 WBC Immature Plt Fraction Sodium Potassium Chloride Carbon Dioxide BUN Creatinine Est GFR ( Amer) Est GFR (Non-Af Amer) BUN/Creatinine Ratio Glucose POC Glucose 209 H 240 H Est Mean Plasma Glucose 206 Hemoglobin A1c 8.8 H Calculated Osmolality Lactic Acid Calcium Troponin I 11/30/18 11/30/18 11/30/18 13:37 18:00 20:05 WBC RBC Hgb Hct MCV MCH MCHC RDW Plt Count MPV Immature Gran % Seg Neutrophils % Lymphocytes % Monocytes % Eosinophils % Basophils % Neutrophils # Lymphocytes # Monocytes # Eosinophils # Basophils # Nucleated RBCs/100 WBC Immature Plt Fraction Sodium Potassium Chloride Carbon Dioxide BUN Creatinine Est GFR ( Amer) Est GFR (Non-Af Amer) BUN/Creatinine Ratio Glucose POC Glucose 272 H 215 H Est Mean Plasma Glucose Hemoglobin A1c Calculated Osmolality Lactic Acid Calcium Troponin I 0.20 H* 12/01/18 12/01/18 12/01/18 00:29 03:30 03:30 WBC 6.7 RBC 3.17 L Hgb 10.0 L Hct 31.2 L MCV 98.4 MCH 31.5 MCHC 32.1 RDW 14.8 H Plt Count 58 L MPV 11.1 Immature Gran % 1.8 Seg Neutrophils % 87.6 Lymphocytes % 8.4 Monocytes % 2.2 Eosinophils % 0.0 Basophils % 0.0 Neutrophils # 5.9 Lymphocytes # 0.6 Monocytes # 0.2 Eosinophils # 0.0 Basophils # 0.0 Nucleated RBCs/100 WBC 0.4 H Immature Plt Fraction 5.4 Sodium 136 Potassium 4.0 Chloride 101 Carbon Dioxide 24 BUN 30 H Creatinine 0.77 Est GFR ( Amer) > 60 Est GFR (Non-Af Amer) > 60 BUN/Creatinine Ratio 39 H Glucose 238 H POC Glucose 384 H Est Mean Plasma Glucose Hemoglobin A1c Calculated Osmolality 296 Lactic Acid Calcium 9.0 Troponin I 12/01/18 08:13 WBC RBC Hgb Hct MCV MCH MCHC RDW Plt Count MPV Immature Gran % Seg Neutrophils % Lymphocytes % Monocytes % Eosinophils % Basophils % Neutrophils # Lymphocytes # Monocytes # Eosinophils # Basophils # Nucleated RBCs/100 WBC Immature Plt Fraction Sodium Potassium Chloride Carbon Dioxide BUN Creatinine Est GFR ( Amer) Est GFR (Non-Af Amer) BUN/Creatinine Ratio Glucose POC Glucose Est Mean Plasma Glucose Hemoglobin A1c Calculated Osmolality Lactic Acid 2.3 H Calcium Troponin I - Impressions Impressions Chest X-Ray 11/30/18 09:12 IMPRESSION: Patchy right lung base pulmonary opacity may represent atelectasis, pneumonia, and/or aspiration. Recommend radiographic follow-up to complete resolution. Findings suggestive of COPD. D/ / 11/30/2018 16:43:46 Demetri Dooley MD / lynda Interpreting Provider: Demetri Dooley MD Echocardiogram Limited Views 11/30/18 09:54 Impressions: LVEF 65%. Normal right ventricular structure and function. Left Ventricular Wall Motion: Rest Echo Findings All wall segments showed normal motion. Findings: Study Quality * Technically adequate exam. ECG Findings * Sinus rhythm with PVCs. Left Ventricle * LVEF 65%. * Normal LV chamber size, wall thickness and systolic function. Right Ventricle * Normal right ventricular structure and function. Left Atrium * Normal left atrial size. Right Atrium * Normal right atrial size. IVC * The IVC is dilated. * > 50% respiratory change - ABG Interpretation ABG results: ABG ABG pH 7.45 pH Units (7.32-7.45) 11/30/18 10:38 ABG pCO2 41 mmHg (35-45) 11/30/18 10:38 ABG pO2 78 mmHg (85-104) L 11/30/18 10:38 ABG O2 Saturation 96 % (95-98) 11/30/18 10:38 Palliative Scale - Palliative Performance Scale How ambulatory is this patient?: Mainly sit / lie What is patient's level of activity and evidence of disease?: Unable hobby/housework, Significant disease How much self-care assistance does patient require?: Considerable assistance required How much oral intake does the patient have?: Normal or reduced What is this patient's level of consciousness?: Full or confusion Palliative Performance Score: 70 % Consult Discharge Plan - Plan Referrals: Yamel Quinn CNP [Primary Care Provider] -
[2018-12-01] MEDS ORDERED: Magic Mouthwash 10 ML UD Cup PO PRN (13:13)
[2018-12-01] MEDS ORDERED: tiZANidine 4 MG TABLET PO PRN (13:13)
--- NOTE | 2018-12-01 13:46 | Oncology Inp Consult Note ---
Date of Encounter: 12/01/18 Time of Encounter: 13:44 - Data of Consult Requesting Physician: Lucy Bland Primary Care Provider: DARIEN Lombardi - Consult Narrative Reason for consult: SOB/ Stage IV lung cancer History of present illness: Assessment: 1. Acute hypercapneic respiratory failure likely 2/2 underlying COPD exacerbation vs CAP 2. COPD exacerbation 3. CAP 4. Metastatic adenocarcinoma of the lung. TPS% <1%, ALK rearrangement, ROS1 rearrangement, MET amplification, RET rearrangement negative. Presented to [facility] with malignant pericardial effusion and brain metastasis. Cytology from pericardial effusion was positive for metastatic adenocarcinoma MOC31, B72.3, Napsin-A, TTF-1, and CK7 positive, consistent with lung primary 5. Malignant pericardial effusion s/p drainage of 1100ml drained at [facility] 10/27/18-11/01/18. Window was not placed 6. A. Fib 7. DM2 8. Anemia 9. Elevated troponin likely 2/2 to demand ischemia Plan: -Currently on Solumedrol 40 mg IV q12h, IV azithromycin, IV rocephin, and PRN BIPAP. She has improved clinically since admission. -Troponin elevated on admission from 0.18 to 0.20. Cards c/s recommend medical management. Patient not a candidate for invasive cath. Currently on ASA/BB/Statin. -Palliative care c/s. Patient would like to f/u with us as an outpatient and begin treatment for her underlying malignancy which is appropriate as she has not received any treatment yet. -Plans are to proceed with WBRT and systemic treatment (Carbo/Pem/Pembrolizumab). -Agree with holding Eliquis as the patients platelets have continued to trend down. Plts 58 this am. -DM2 being managed by primary team. -We will arrange outpatient follow up at discharge. Thanks for the consult! We will continue to follow along with you. HPI: The patient is a 63 yo WF w/ multiple comorbidities who was transferred from [facility] to [facility] for evaluation of SOB. She is on 2-3 liters of O2 at baseline and is a 2 PPD smoker. Initial ABG showed a pH 7.26, PCO2 52, PaO2 205 indicating she was in acute, hypercapneic respiratory failure. She was placed on BIPAP, started on steroids (IV solumedrol) as there was concern she was having a COPD exacerbation, and IV antibiotics (Azithromycin/Rocephin) due to a possible underlying PNA. We have been c/s due her recent diagnosis of Stage IV Lung Adenocarcinoma. Today, she states her SOB has improved, and otherwise denies any chest pain, abdominal pain, N/V/D, or urinary issues. ROS: 12 point ROS performed. Pertinent positives in HPI. PE: General appearance: AAO x 3, in NAD. On 2-3 liters of O2 via NC. HEENT: NC/AT, PERRLA, MMM Lungs: Decreased BS b/l with scattered wheezes and rhonchi. No rales appreciated. CV: RRR, no MRGs ABD: Soft, NT, ND, +BS EXT: trace edema in LEs b/l. No cyanosis or clubbing. Neuro: No focal deficits apparent. Moves all 4 extremities. Past Med Surg Social Fam HX - Past Medical History Medical history: atrial fibrillation, COPD, hypertension, myocardial infarction Psychiatric history: no psych history - Past Surgical History Additional surgical history: Tubal - Social History Smoking Status: Current every day smoker Alcohol use: none Drug use: none Medications and Allergies Budesonide/Formoterol 160/4.5 [Symbicort 160/4.5] 2 puff IH BIDR 11/07/18 [History] Diltiazem HCl [Diltiazem ER] 120 mg PO DAILY 11/07/18 [History] Duloxetine HCl [Cymbalta] 60 mg PO DAILY 11/07/18 [History] Gabapentin 600 mg PO Q8H 11/07/18 [History] Ipratropium/Albuterol Neb [Duoneb] 3 ml IH QID PRN 11/07/18 [History] Promethazine [Phenergan] 25 mg PO Q6HR PRN #30 tablet 11/07/18 [Rx] Magic Mouthwash [Magic Mouthwash BLM] 10 ml PO QID PRN #240 ml 11/21/18 [Rx] Apixaban [Eliquis] 5 mg PO BID 30 Days #60 tablet 11/27/18 [Rx] Furosemide [Lasix] 20 mg PO DAILY #5 tablet 11/27/18 [Rx] Montelukast [Singulair] 10 mg PO HS 30 Days #30 tablet 11/27/18 [Rx] Tramadol HCl [Ultram] 50 mg PO TID PRN 15 Days #45 tab 11/27/18 [Rx] Losartan/Hydrochlorothiazide [Losartan-Hctz 50-12.5 mg Tab] 1 each PO DAILY 11/30/18 [History] Lovastatin [Altoprev] 40 mg PO DAILY 11/30/18 [History] Metoprolol [Lopressor] 25 mg PO DAILY 11/30/18 [History] Tizanidine HCl [Zanaflex] 2 mg PO Q8H PRN 11/30/18 [History] traZODone [TraZODone] 50 mg PO HS 11/30/18 [History] Allergy/AdvReac Type Severity Reaction Status Date / Time No Known Allergies Allergy Verified 11/30/18 13:31 Oncology Inpatient Results Labs: 11/07/18 11/07/18 12/01/18 16:08 16:08 03:30 WBC 6.7 RBC 3.17 L Hgb 10.0 L Hct 31.2 L MCV 98.4 MCH 31.5 MCHC 32.1 RDW 14.8 H Plt Count 58 L MPV 11.1 Immature Gran % 1.8 Seg Neutrophils % 87.6 Lymphocytes % 8.4 Monocytes % 2.2 Eosinophils % 0.0 Basophils % 0.0 Neutrophils # 5.9 Lymphocytes # 0.6 Monocytes # 0.2 Eosinophils # 0.0 Basophils # 0.0 Nucleated RBCs/100 WBC 0.4 H Immature Plt Fraction 5.4 Sodium Potassium Chloride Carbon Dioxide BUN Creatinine Est GFR ( Amer) Est GFR (Non-Af Amer) BUN/Creatinine Ratio Glucose Calculated Osmolality Calcium Iron 57 % Saturation 12 L Transferrin 334 Ferritin 93 Vitamin B12 423 Folate 8.9 12/01/18 03:30 WBC RBC Hgb Hct MCV MCH MCHC RDW Plt Count MPV Immature Gran % Seg Neutrophils % Lymphocytes % Monocytes % Eosinophils % Basophils % Neutrophils # Lymphocytes # Monocytes # Eosinophils # Basophils # Nucleated RBCs/100 WBC Immature Plt Fraction Sodium 136 Potassium 4.0 Chloride 101 Carbon Dioxide 24 BUN 30 H Creatinine 0.77 Est GFR ( Amer) > 60 Est GFR (Non-Af Amer) > 60 BUN/Creatinine Ratio 39 H Glucose 238 H Calculated Osmolality 296 Calcium 9.0 Iron % Saturation Transferrin Ferritin Vitamin B12 Folate Imaging: XR/XR chest 2V 11/30/2018 IMPRESSION: Patchy right lung base pulmonary opacity may represent atelectasis, pneumonia, and/or aspiration. Recommend radiographic follow-up to complete resolution. Findings suggestive of COPD. Consult Discharge Plan - Plan Referrals: Yamel Quinn CNP [Primary Care Provider] - Inpatient Charges Provider: Dr. Rui Esteban Consult - Inpatient: [id number]
[2018-12-01] MEDS ORDERED: Insulin DETEMIR 100 UNIT/ML X5UNITS SQ SCH (21:00)
[2018-12-01] MEDS ORDERED: traZODone 50 MG TABLET PO SCH (21:00)
[2018-12-01] MEDS: Azithromycin 500 MG in D5% in Water 250 ML IVPB SCH (23:11)
[2018-12-02] MEDS: Insulin LISPRO 300 UNITS/3 ML VIAL SQ SCH ×3 (01:19→12:24)
[2018-12-02 02:52] LABS: Adenovirus Not Detected (Not Detect); Bordetella Pertussis Not Detected (Not Detect); Chlamydophila pneumoniae Not Detected (Not Detect); Coronavirus 229E Not Detected (Not Detect); Coronavirus HKU1 Not Detected (Not Detect); Coronavirus NL63 Not Detected (Not Detect); Coronavirus OC43 Not Detected (Not Detect); Human Metapneumovirus Not Detected (Not Detect); Human Rhinovirus/Enterovirus Not Detected (Not Detect); Influenza A Subtype 2009 H1 Not Detected (Not Detect); Influenza A Untypeable Not Detected (Not Detect); Influenza B Not Detected (Not Detect); Mycoplasma pneumoniae Not Detected (Not Detect); Parainfluenza Virus 1 Not Detected (Not Detect); Parainfluenza Virus 2 Not Detected (Not Detect); Parainfluenza Virus 3 Not Detected (Not Detect); Parainfluenza Virus 4 Not Detected (Not Detect); Respiratory Syncytial Virus Not Detected (Not Detect)
[2018-12-02] MEDS: Ipratropium/Albuterol Neb 3 ML IH SCH ×3 (04:17→15:24)
[2018-12-02] MEDS: MethylPREDNISolone 40 MG/ML VIAL IVP SCH (06:24)
[2018-12-02] MEDS: 0.9 % Sodium Chloride 1,000 ML IVC SCH (06:46)
[2018-12-02 07:04] VITALS: BP 120/71
[2018-12-02] MEDS: Diltiazem CD (24hr) 120 MG CAPSULE PO SCH (08:40)
[2018-12-02] MEDS: Aspirin 81 MG TAB.CHEW PO SCH (08:40)
[2018-12-02] MEDS: Gabapentin 300 MG CAPSULE PO SCH ×2 (08:40→14:17)
[2018-12-02] MEDS: traMADol 50 MG TABLET PO PRN (08:41)
[2018-12-02] MEDS: Nicotine 21 MG PATCH.TD24 TD SCH (08:41)
[2018-12-02] MEDS ORDERED: NON-FORMULARY MEDICATION 1 EACH EACH (Lovastatin [Altoprev] 40 MG) PO SCH (09:00)
[2018-12-02] MEDS ORDERED: Metoprolol XL (24 HR) Succ 25 MG TAB.ER.24H PO SCH (09:00)
[2018-12-02] MEDS ORDERED: Furosemide 20 MG TABLET PO SCH (09:00)
[2018-12-02 09:13] LABS: Basophils % 0.3 %; Eosinophils # 0.1 K/mcL (0.0-0.6); Eosinophils % 0.8 %; Hematocrit 34.4 % (35.3-44.9); Hemoglobin 11.5 g/dL (11.5-15.4); Lymphocytes # 0.7 K/mcL (0.6-4.6); Lymphocytes % 9.7 %; Mean Corpuscular HGB Conc 33.4 g/dL (31.6-35.5); Mean Corpuscular Hemoglobin 32.3 pg (28.0-33.3); Mean Corpuscular Volume 96.6 fL (83.0-100.0); Mean Platelet Volume 10.8 fL (9.4-12.4); Monocytes # 0.2 K/mcL (0.0-1.3); Monocytes % 2.5 %; Neutrophils # 6.4 K/mcL (1.6-8.9); Nucleated Red Blood Cells 0.8 /100 WBC (0); Red Blood Count 3.56 M/mcL (3.82-4.97); Red Cell Distribution Width 15.8 % (11.5-14.5); Segmented Neutrophils % 83.7 %; White Blood Count 7.6 K/mcL (4.3-11.1)
[2018-12-02 09:14] LABS: Platelet Count 62 K/mcL (140-400)
[2018-12-02] MEDS: cefTRIAXone 1,000 MG in Water for inj. (sterile) 20 ML 10 ML IVP SCH (09:15)
[2018-12-02 09:28] LABS: BUN/Creatinine Ratio 53 (6-26); Blood Urea Nitrogen 35 mg/dL (8-23); Calcium 9.2 mg/dL (8.6-10.3); Carbon Dioxide 26 mEq/L (23-29); Chloride 101 mEq/L (98-107); Glucose 202 mg/dL (70-105); Osmolality,Calculated 294 (280-300); Potassium 4.7 mEq/L (3.5-5.1); Sodium 135 mEq/L (136-145); eGFR For African Americans > 60 (> 60); eGFR For Non-African Americans > 60 (> 60)
[2018-12-02] MEDS: Budesonide/Formoterol 160/4.5 1 PUFF INH IH SCH (10:25)
--- NOTE | 2018-12-02 14:00 | Discharge Summary ---
- NOTES TO OUTPATIENT PROVIDER Notes to Outpatient Provider: Metastatic adenocarcinoma of lung - patient wants aggressive treatment, to f/u Onc. Demand ischemia, new ASA and statin. New DM2, new metformin. New diastolic HF, new lasix 40 daily, will need close check of BMP. Re A-Fib, holding Eliquis due to thrombocytopenia w mets to brain. Date of Encounter: 12/02/18 Time of Encounter: 13:52 Hospital course: Dear Doctors, I recently had the opportunity to care for this patient during their recent hospital stay at [facility]. 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 In the ED, pt found to have CXR w RLL infiltrate, wheezing, elevated BNP, pedal edema, hyp erglycemia, hypoxia, elevated troponin, and elevated lactate. The patient was given abx, steroids, and fluids and admitted. In the hospital, pt's symptoms improved with abx, steroids, and nebs. Lactic acidosis resolved and thus patient was initiated on diuresis. Oncology was consulted who will see patient in clinic next week for initiation of chemotherapy. The patient is being discharged on PO prednisone for COPD exacerbation, cefdinir for pneumonia, lasix for CHF, metformin for DM2, ASA/statin for CAD, and due to thrombocytopenia her Eliquis for A-Fib is being held. Dx: Pneumonia, COPD exacerbation, acute on chronic HFpEF, acute on chronic hypoxic respiratory failure, DM2 w hyperglycemia, CAD w demand ischemia, lactic acidosis Pertinent tests/consults: Follow up: Onc 1 week, PCP 1 week Tests pending: none Med changes: - stop Eliquis - new ASA 81 - new lipitor 40 - stop hctz (stop combo losartan/hctz and initiate just losartan) - new lasix 40 daily - new metformin ER 500 bid - new prednisone 40 daily, last dose 12/05 - new omnicef 300 bid, last dose 12/05 Mental status: awake, fully oriented Code status: [employer] Supervisor spent on discharge: 35 minutes It has been my pleasure participating in this patient's care. Please contact me with any questions or concerns regarding their hospital stay. Sincerely, Amish Grant MD - Discharge Medications Prescriptions: New Aspirin 81 mg PO DAILY #30 tab.chew Metformin HCl [Glucophage Xr] 500 mg PO BID #60 tab.er.24h Atorvastatin [Lipitor] 40 mg PO HS #30 tablet Losartan Potassium 50 mg PO DAILY #30 tablet Cefdinir [Omnicef] 300 mg PO BID #8 capsule predniSONE [PredniSONE] 40 mg PO DAILY #8 tablet Continued Ipratropium/Albuterol Neb [Duoneb] 3 ml IH QID PRN PRN Reason: Wheezing Gabapentin 600 mg PO Q8H Duloxetine HCl [Cymbalta] 60 mg PO DAILY Diltiazem HCl [Diltiazem ER] 120 mg PO DAILY Budesonide/Formoterol 160/4.5 [Symbicort 160/4.5] 2 puff IH BIDR Promethazine [Phenergan] 25 mg PO Q6HR PRN #30 tablet PRN Reason: Nausea Magic Mouthwash [Magic Mouthwash BLM] 10 ml PO QID PRN #240 ml PRN Reason: Pain Montelukast [Singulair] 10 mg PO HS 30 Days #30 tablet Tramadol HCl [Ultram] 50 mg PO TID PRN 15 Days #45 tab PRN Reason: Pain Tizanidine HCl [Zanaflex] 2 mg PO Q8H PRN PRN Reason: Muscle Spasm traZODone [TraZODone] 50 mg PO HS Metoprolol [Lopressor] 25 mg PO DAILY Furosemide [Lasix] 40 mg PO DAILY #60 tablet Discontinued Apixaban [Eliquis] 5 mg PO BID 30 Days #60 tablet Furosemide [Lasix] 20 mg PO DAILY #5 tablet Lovastatin [Altoprev] 40 mg PO DAILY Losartan/Hydrochlorothiazide [Losartan-Hctz 50-12.5 mg Tab] 1 each PO DAILY Home Medications: Budesonide/Formoterol 160/4.5 [Symbicort 160/4.5] 2 puff IH BIDR 11/07/18 [History] Diltiazem HCl [Diltiazem ER] 120 mg PO DAILY 11/07/18 [History] Duloxetine HCl [Cymbalta] 60 mg PO DAILY 11/07/18 [History] Gabapentin 600 mg PO Q8H 11/07/18 [History] Ipratropium/Albuterol Neb [Duoneb] 3 ml IH QID PRN 11/07/18 [History] Promethazine [Phenergan] 25 mg PO Q6HR PRN #30 tablet 11/07/18 [Rx] Magic Mouthwash [Magic Mouthwash BLM] 10 ml PO QID PRN #240 ml 11/21/18 [Rx] Montelukast [Singulair] 10 mg PO HS 30 Days #30 tablet 11/27/18 [Rx] Tramadol HCl [Ultram] 50 mg PO TID PRN 15 Days #45 tab 11/27/18 [Rx] Metoprolol [Lopressor] 25 mg PO DAILY 11/30/18 [History] Tizanidine HCl [Zanaflex] 2 mg PO Q8H PRN 11/30/18 [History] traZODone [TraZODone] 50 mg PO HS 11/30/18 [History] Aspirin 81 mg PO DAILY #30 tab.chew 12/02/18 [Rx] Atorvastatin [Lipitor] 40 mg PO HS #30 tablet 12/02/18 [Rx] Cefdinir [Omnicef] 300 mg PO BID #8 capsule 12/02/18 [Rx] Furosemide [Lasix] 40 mg PO DAILY #60 tablet 12/02/18 [Rx] Losartan Potassium 50 mg PO DAILY #30 tablet 12/02/18 [Rx] Metformin HCl [Glucophage Xr] 500 mg PO BID #60 tab.er.24h 12/02/18 [Rx] predniSONE [PredniSONE] 40 mg PO DAILY #8 tablet 12/02/18 [Rx] Allergies/Adverse Reactions: Allergy/AdvReac Type Severity Reaction Status Date / Time No Known Allergies Allergy Verified 11/30/18 13:31 Date of admission: 11/29/18 18:35 Primary care physician: DARIEN Lombardi Consults: 11/29/18 22:06 Consult to Nurse Navigator [CONS] Routine Comment: 11/29/18 23:15 Consult to Cardiology [CONS] Routine Comment: Consulting Provider: [facility] [place] Reason for Consult: Elevated troponin, possible NSTEMI. Patient has history of metastatic lung cancer, recently had pericardiocentesis for malignant pericardial effusion Call Completed: No 11/30/18 11:47 Consult to Palliative Care [CONS] Routine Comment: Consulting Provider: Pall[facility] Reason for Consult: Discussion about CODE STATUS Call Completed: Yes 11/30/18 12:17 Consult to Oncology [CONS] Routine Consulting Provider: Oncology [facility] [place] Reason for Consult: Lung cancer with metastasis Call Completed: Yes 12/01/18 13:23 Consult to Diabetes Education [CONS] Routine Comment: Reason for Consult: Diabetes education and supply - Constitutional Vitals: Temp Pulse Resp BP Pulse Ox 97.6 F 61 18 120/71 98 12/02/18 07:02 12/02/18 07:02 12/02/18 10:25 12/02/18 07:02 12/02/18 13:22 Exam: General: NAD, good eye contact, well appearing Thoracic: Bilateral end expiratory wheezing but overall decent aeration Cardio: Normal S1 and S2, regular rate and rhythm Abdomen: Soft, nontender, nondistended. Extremities: Warm, well perfused. DP pulses 2+ b/l. Does have pedal Neuro: Awake, fully oriented. Speech fluent - Patient Status Disposition: Home, Self-Care Condition: Serious Functional capacity at discharge: independent ambulation Overall status at discharge: patient is progressing back to baseline - Discharge Instructions Instructions: Prednisone (By mouth), Losartan (By mouth), Metformin (By mouth), Atorvastatin (By mouth), Cefdinir (By mouth), Heart Failure (DC), Atrial Fibrillation (DC), Acute Respiratory Distress Syndrome (DC), Chronic Obstructive Pulmonary Disease (DC) Follow Up With: Yamel Quinn CNP [Primary Care Provider] - Maurice Esteban MD [Partnered Physician] - 12/09/18 8:15 am (1 week follow-up with [facility]) - Diet and Activity Activity: resume usual activities as tolerated, wear oxygen at all times Diet: diabetic diet
--- NOTE | 2018-12-02 14:29 | Oncology Inp Progress Note ---
Date of Encounter: 12/02/18 Time of Encounter: 14:28 Oncology: Subj Interval history: S: Patient seen and examined. SOB has improved this afternoon and is asking when she can go home. Otherwise, she denies any fevers, chills, chest pain, or N/V/D. O: Vitals T 97.6 F, HR 61, RR 18, BP 120/71, SaO2 98% on 2L of O2 PE General appearance: AAO x 3, in NAD. On 2-3 liters of O2 via NC. HEENT: NC/AT, PERRLA, MMM Lungs: Decreased BS b/l with scattered rhonchi. No rales or wheezing appreciated. CV: RRR, no MRGs ABD: Soft, NT, ND, +BS EXT: trace edema in LEs b/l. No cyanosis or clubbing. Neuro: No focal deficits apparent. Moves all 4 extremities. A: 1. Acute hypercapneic respiratory failure likely 2/2 underlying COPD exacerbation vs CAP 2. COPD exacerbation 3. CAP 4. Metastatic adenocarcinoma of the lung. TPS% <1%, ALK rearrangement, ROS1 rearrangement, MET amplification, RET rearrangement negative. Presented to OSH with malignant pericardial effusion and brain metastasis. Cytology from pericardial effusion was positive for metastatic adenocarcinoma MOC31, B72.3, Napsin-A, TTF-1, and CK7 positive, consistent with lung primary 5. Malignant pericardial effusion s/p drainage of 1100ml drained at [facility] 10/27/18-11/01/18. Window was not placed 6. A. Fib 7. DM2 8. Anemia 9. Elevated troponin likely 2/2 to demand ischemia Plan: -Currently on Solumedrol 40 mg IV q12h and Cefdinir 300 mg PO BID. She has improved clinically since admission. -Troponin elevated on admission from 0.18 to 0.20. Cards c/s recommend medical management. Patient not a candidate for invasive cath. Currently on ASA/BB/Statin. -Palliative care c/s. Patient would like to f/u with us as an outpatient and begin treatment for her underlying malignancy which is appropriate as she has not received any treatment yet. -Plans are to proceed with WBRT and systemic treatment (Carbo/Pem/Pembrolizuma b). -Agree with holding Eliquis as the patients platelets have continued to trend down. Plts 62 this am with slight improvement. -DM2 being managed by primary team. -Please arrange outpatient follow up at discharge. Oncology: Obj Data - Labs CBC & Chem 7: 12/02/18 08:57 12/02/18 08:57 Consult Discharge Plan - Plan Referrals: Yamel Quinn CNP [Primary Care Provider] - Maurice Esteban MD [Partnered Physician] - (1 week) Prescriptions: Aspirin 81 mg PO DAILY #30 tab.chew Metformin HCl [Glucophage Xr] 500 mg PO BID #60 tab.er.24h Furosemide [Lasix] 40 mg PO DAILY #60 tablet Atorvastatin [Lipitor] 40 mg PO HS #30 tablet Losartan Potassium 50 mg PO DAILY #30 tablet Cefdinir [Omnicef] 300 mg PO BID #8 capsule predniSONE [PredniSONE] 40 mg PO DAILY #8 tablet Inpatient Charges Provider: Dr. Rui Esteban Follow up - Inpatient: [id number]
[2018-12-02] MEDS ORDERED: Azithromycin 250 MG TABLET PO SCH (21:00)
[2018-12-02] MEDS ORDERED: Cefdinir 300 MG CAPSULE PO SCH (21:00)
== END 2018-12-02 17:58 | disposition home or self-care (01) | DRG 190 ==
LOC: SUATTDRO 18:35 → 2NENU 18:35
PROVIDERS: ADMIT Internal Medicine Nephrology; ATTEND Internal Medicine

== ENCOUNTER 2018-12-24 17:33 | Inpatient (IN) ==
[2018-12-24] MEDS ORDERED: Naloxone 0.4 MG/ML INJ IVP PRN (22:24)
[2018-12-24 23:35] LABS: Basophils % 0.1 %; Hematocrit 27.5 % (35.3-44.9); Hemoglobin 8.9 g/dL (11.5-15.4); Immature Granulocytes % 1.6 % (0-4); Lymphocytes # 0.5 K/mcL (0.6-4.6); Lymphocytes % 7.2 %; Mean Corpuscular HGB Conc 32.4 g/dL (31.6-35.5); Mean Corpuscular Hemoglobin 33.3 pg (28.0-33.3); Mean Platelet Volume 10.2 fL (9.4-12.4); Monocytes # 0.2 K/mcL (0.0-1.3); Monocytes % 3.3 %; Neutrophils # 6.1 K/mcL (1.6-8.9); Nucleated Red Blood Cells 0.4 /100 WBC (0); Platelet Count 115 K/mcL (140-400); Red Blood Count 2.67 M/mcL (3.82-4.97); Red Cell Distribution Width 17.6 % (11.5-14.5); Segmented Neutrophils % 87.8 %; White Blood Count 6.9 K/mcL (4.3-11.1)
[2018-12-24] MEDS: Ipratropium/Albuterol Neb 3 ML IH SCH (23:40)
[2018-12-24 23:54] LABS: Alanine Aminotransferase 18 Units/L (7-52); Albumin 3.5 g/dL (3.5-5.7); Albumin/Globulin Ratio 1.4 (1.1-2.2); Alkaline Phosphatase 52 Units/L (34-104); Aspartate Amino Transferase 6 Units/L (13-39); BUN/Creatinine Ratio 41 (6-26); Bilirubin,Total 0.3 mg/dL (0.3-1.0); Blood Urea Nitrogen 34 mg/dL (8-23); Calcium 9.3 mg/dL (8.6-10.3); Carbon Dioxide 31 mEq/L (23-29); Chloride 98 mEq/L (98-107); Globulin 2.5 g/dL (2.4-3.5); Glucose 389 mg/dL (70-105); Osmolality,Calculated 304 (280-300); Potassium 4.4 mEq/L (3.5-5.1); Sodium 135 mEq/L (136-145); eGFR For African Americans > 60 (> 60); eGFR For Non-African Americans > 60 (> 60)
[2018-12-25] MEDS: Ipratropium/Albuterol Neb 3 ML IH SCH ×4 (03:22→23:20)
[2018-12-25] MEDS ORDERED: MethylPREDNISolone 40 MG/ML VIAL IVP SCH (06:00)
[2018-12-25] MEDS ORDERED: *HR* Dextrose 50 % in Water (Syg) 50 ML SYRINGE IVP PRN (08:03)
[2018-12-25] MEDS ORDERED: D5% in Water 1,000 ML IVC PRN (08:03)
[2018-12-25] MEDS ORDERED: Dextrose Gel 15 GM/37.5 ML TUBE PO PRN ×2 (08:03)
[2018-12-25] MEDS: Furosemide 20 MG/2 ML VIAL IVP SCH ×2 (08:05→17:34)
[2018-12-25] MEDS: Gabapentin 300 MG CAPSULE PO SCH ×2 (10:18→17:34)
[2018-12-25] MEDS: Aspirin 81 MG TAB.CHEW PO SCH (10:18)
[2018-12-25 10:27] LABS: Hematocrit 28.4 % (35.3-44.9); Hemoglobin 9.1 g/dL (11.5-15.4); Mean Corpuscular Hemoglobin 33.2 pg (28.0-33.3); Mean Corpuscular Volume 103.6 fL (83.0-100.0); Mean Platelet Volume 10.2 fL (9.4-12.4); Platelet Count 111 K/mcL (140-400); Red Blood Count 2.74 M/mcL (3.82-4.97); Red Cell Distribution Width 17.9 % (11.5-14.5); White Blood Count 6.5 K/mcL (4.3-11.1)
[2018-12-25 10:47] LABS: Alanine Aminotransferase 16 Units/L (7-52); Albumin 3.5 g/dL (3.5-5.7); Albumin/Globulin Ratio 1.3 (1.1-2.2); Alkaline Phosphatase 49 Units/L (34-104); Aspartate Amino Transferase 5 Units/L (13-39); BUN/Creatinine Ratio 41 (6-26); Bilirubin,Total 0.4 mg/dL (0.3-1.0); Blood Urea Nitrogen 35 mg/dL (8-23); Calcium 9.4 mg/dL (8.6-10.3); Carbon Dioxide 32 mEq/L (23-29); Chloride 95 mEq/L (98-107); Globulin 2.6 g/dL (2.4-3.5); Glucose 417 mg/dL (70-105); Magnesium 1.9 mg/dL (1.6-2.6); Osmolality,Calculated 308 (280-300); Phosphorous 3.8 mg/dL (2.7-4.5); Potassium 4.5 mEq/L (3.5-5.1); Sodium 136 mEq/L (136-145); Total Protein 6.1 g/dL (6.4-8.9); eGFR For African Americans > 60 (> 60); eGFR For Non-African Americans > 60 (> 60)
[2018-12-25 11:39] LABS: Estimated Average Glucose 174 mg/dl
[2018-12-25] MEDS: Insulin LISPRO 300 UNITS/3 ML VIAL SQ SCH ×2 (11:51→17:33)
[2018-12-25] MEDS: *HR* Heparin 5,000 UNIT/ML VIAL SQ SCH ×2 (14:00→20:22)
[2018-12-25] MEDS: Clindamycin 300 MG in D5% in Water 50 ML IVPB SCH (17:33)
[2018-12-25] MEDS: Insulin DETEMIR 100 UNIT/ML X5UNITS SQ SCH (20:23)
[2018-12-26] MEDS: Gabapentin 300 MG CAPSULE PO SCH ×3 (01:40→18:34)
[2018-12-26] MEDS: Clindamycin 300 MG in D5% in Water 50 ML IVPB SCH ×3 (01:55→19:42)
[2018-12-26 04:08] LABS: Hemoglobin 8.6 g/dL (11.5-15.4); Mean Corpuscular HGB Conc 31.9 g/dL (31.6-35.5); Mean Corpuscular Hemoglobin 32.7 pg (28.0-33.3); Mean Corpuscular Volume 102.7 fL (83.0-100.0); Mean Platelet Volume 10.1 fL (9.4-12.4); Platelet Count 107 K/mcL (140-400); Red Blood Count 2.63 M/mcL (3.82-4.97); Red Cell Distribution Width 17.9 % (11.5-14.5); White Blood Count 6.5 K/mcL (4.3-11.1)
[2018-12-26] MEDS: Ipratropium/Albuterol Neb 3 ML IH SCH ×4 (04:24→21:39)
[2018-12-26 04:31] LABS: Alanine Aminotransferase 15 Units/L (7-52); Albumin 3.4 g/dL (3.5-5.7); Albumin/Globulin Ratio 1.5 (1.1-2.2); Alkaline Phosphatase 46 Units/L (34-104); Aspartate Amino Transferase 6 Units/L (13-39); BUN/Creatinine Ratio 51 (6-26); Bilirubin,Total 0.3 mg/dL (0.3-1.0); Blood Urea Nitrogen 35 mg/dL (8-23); Calcium 9.1 mg/dL (8.6-10.3); Carbon Dioxide 34 mEq/L (23-29); Chloride 96 mEq/L (98-107); Globulin 2.2 g/dL (2.4-3.5); Glucose 172 mg/dL (70-105); Osmolality,Calculated 294 (280-300); Phosphorous 3.2 mg/dL (2.7-4.5); Potassium 4.2 mEq/L (3.5-5.1); Sodium 136 mEq/L (136-145); Total Protein 5.6 g/dL (6.4-8.9); eGFR For African Americans > 60 (> 60); eGFR For Non-African Americans > 60 (> 60)
[2018-12-26] MEDS: *HR* Heparin 5,000 UNIT/ML VIAL SQ SCH ×3 (05:35→21:47)
[2018-12-26] MEDS: Saline Nasal Spray 44 ML BOTTLE NS PRN ×3 (05:35→12:39)
[2018-12-26] MEDS: Insulin LISPRO 300 UNITS/3 ML VIAL SQ SCH ×3 (08:43→18:36)
[2018-12-26] MEDS: Furosemide 20 MG/2 ML VIAL IVP SCH ×2 (08:44→18:36)
[2018-12-26] MEDS: Aspirin 81 MG TAB.CHEW PO SCH (08:44)
[2018-12-26] MEDS: DilTIAZem CD (24hr) 120 MG CAP.ER.24H PO SCH (08:44)
[2018-12-26] MEDS ORDERED: PrednisoLONE Oral Soln 15 MG/5 ML UDC PO SCH (09:00)
[2018-12-26] MEDS: Insulin DETEMIR 100 UNIT/ML X5UNITS SQ SCH (20:32)
[2018-12-27] MEDS: Clindamycin 300 MG in D5% in Water 50 ML IVPB SCH (02:23)
[2018-12-27] MEDS: Gabapentin 300 MG CAPSULE PO SCH ×3 (02:24→18:03)
[2018-12-27 02:50] LABS: Hematocrit 28.1 % (35.3-44.9); Hemoglobin 8.9 g/dL (11.5-15.4); Mean Corpuscular HGB Conc 31.7 g/dL (31.6-35.5); Mean Corpuscular Hemoglobin 32.6 pg (28.0-33.3); Mean Corpuscular Volume 102.9 fL (83.0-100.0); Platelet Count 114 K/mcL (140-400); Red Blood Count 2.73 M/mcL (3.82-4.97); Red Cell Distribution Width 17.7 % (11.5-14.5)
[2018-12-27 03:04] LABS: Alanine Aminotransferase 14 Units/L (7-52); Albumin 3.4 g/dL (3.5-5.7); Albumin/Globulin Ratio 1.5 (1.1-2.2); Alkaline Phosphatase 46 Units/L (34-104); Aspartate Amino Transferase 7 Units/L (13-39); BUN/Creatinine Ratio 53 (6-26); Bilirubin,Total 0.4 mg/dL (0.3-1.0); Blood Urea Nitrogen 35 mg/dL (8-23); Carbon Dioxide 37 mEq/L (23-29); Chloride 94 mEq/L (98-107); Globulin 2.2 g/dL (2.4-3.5); Glucose 162 mg/dL (70-105); Magnesium 2.1 mg/dL (1.6-2.6); Osmolality,Calculated 296 (280-300); Phosphorous 3.8 mg/dL (2.7-4.5); Potassium 4.2 mEq/L (3.5-5.1); Sodium 137 mEq/L (136-145); Total Protein 5.6 g/dL (6.4-8.9); eGFR For African Americans > 60 (> 60); eGFR For Non-African Americans > 60 (> 60)
[2018-12-27] MEDS: Ipratropium/Albuterol Neb 3 ML IH SCH ×4 (04:41→21:53)
[2018-12-27] MEDS: *HR* Heparin 5,000 UNIT/ML VIAL SQ SCH ×3 (05:19→21:49)
[2018-12-27] MEDS: Insulin LISPRO 300 UNITS/3 ML VIAL SQ SCH ×3 (07:36→18:02)
[2018-12-27] MEDS: Saline Nasal Spray 44 ML BOTTLE NS PRN ×3 (08:32→18:03)
[2018-12-27] MEDS: Aspirin 81 MG TAB.CHEW PO SCH (08:33)
[2018-12-27] MEDS: DilTIAZem CD (24hr) 120 MG CAP.ER.24H PO SCH (08:33)
[2018-12-27] MEDS: Furosemide 20 MG/2 ML VIAL IVP SCH ×2 (08:33→18:03)
[2018-12-27] MEDS ORDERED: PrednisoLONE Oral Soln 15 MG/5 ML UDC PO SCH (09:00)
[2018-12-27] MEDS: Insulin DETEMIR 100 UNIT/ML X5UNITS SQ SCH (21:49)
[2018-12-28] MEDS: Gabapentin 300 MG CAPSULE PO SCH ×3 (02:20→16:26)
[2018-12-28 03:08] LABS: Hematocrit 28.6 % (35.3-44.9); Hemoglobin 9.2 g/dL (11.5-15.4); Mean Corpuscular HGB Conc 32.2 g/dL (31.6-35.5); Mean Corpuscular Hemoglobin 32.6 pg (28.0-33.3); Mean Corpuscular Volume 101.4 fL (83.0-100.0); Mean Platelet Volume 10.3 fL (9.4-12.4); Platelet Count 109 K/mcL (140-400); Red Blood Count 2.82 M/mcL (3.82-4.97); Red Cell Distribution Width 17.7 % (11.5-14.5); White Blood Count 6.6 K/mcL (4.3-11.1)
[2018-12-28 03:27] LABS: Alanine Aminotransferase 15 Units/L (7-52); Albumin 3.5 g/dL (3.5-5.7); Albumin/Globulin Ratio 1.6 (1.1-2.2); Alkaline Phosphatase 45 Units/L (34-104); Aspartate Amino Transferase 8 Units/L (13-39); BUN/Creatinine Ratio 44 (6-26); Bilirubin,Total 0.5 mg/dL (0.3-1.0); Blood Urea Nitrogen 29 mg/dL (8-23); Carbon Dioxide 37 mEq/L (23-29); Chloride 93 mEq/L (98-107); Globulin 2.2 g/dL (2.4-3.5); Glucose 96 mg/dL (70-105); Osmolality,Calculated 286 (280-300); Phosphorous 3.5 mg/dL (2.7-4.5); Potassium 3.9 mEq/L (3.5-5.1); Sodium 135 mEq/L (136-145); Total Protein 5.7 g/dL (6.4-8.9); eGFR For African Americans > 60 (> 60); eGFR For Non-African Americans > 60 (> 60)
[2018-12-28] MEDS: Ipratropium/Albuterol Neb 3 ML IH SCH ×2 (03:55→10:06)
[2018-12-28] MEDS: *HR* Heparin 5,000 UNIT/ML VIAL SQ SCH ×2 (05:57→16:26)
[2018-12-28] MEDS: Insulin LISPRO 300 UNITS/3 ML VIAL SQ SCH ×3 (08:52→16:26)
[2018-12-28] MEDS: DilTIAZem CD (24hr) 120 MG CAP.ER.24H PO SCH (09:03)
[2018-12-28] MEDS: Furosemide 20 MG/2 ML VIAL IVP SCH ×2 (09:03→16:26)
[2018-12-28] MEDS: Aspirin 81 MG TAB.CHEW PO SCH (09:03)
[2018-12-28] MEDS ORDERED: Ipratropium/Albuterol Neb 3 ML IH PRN (10:05)
[2018-12-28] MEDS ORDERED: *HR* Metoprolol 5 MG/5 ML VIAL IVP ONE (17:21)
[2018-12-28] MEDS: Apixaban 5 MG TABLET PO SCH (21:34)
[2018-12-29] MEDS: Gabapentin 300 MG CAPSULE PO SCH ×3 (01:35→16:39)
[2018-12-29 04:02] LABS: Hematocrit 30.6 % (35.3-44.9); Hemoglobin 9.6 g/dL (11.5-15.4); Mean Corpuscular HGB Conc 31.4 g/dL (31.6-35.5); Mean Corpuscular Hemoglobin 32.2 pg (28.0-33.3); Mean Corpuscular Volume 102.7 fL (83.0-100.0); Mean Platelet Volume 10.4 fL (9.4-12.4); Platelet Count 128 K/mcL (140-400); Red Blood Count 2.98 M/mcL (3.82-4.97); Red Cell Distribution Width 17.9 % (11.5-14.5); White Blood Count 9.5 K/mcL (4.3-11.1)
[2018-12-29 04:12] LABS: Alanine Aminotransferase 13 Units/L (7-52); Albumin 3.5 g/dL (3.5-5.7); Albumin/Globulin Ratio 1.5 (1.1-2.2); Alkaline Phosphatase 48 Units/L (34-104); Aspartate Amino Transferase 8 Units/L (13-39); BUN/Creatinine Ratio 42 (6-26); Bilirubin,Total 0.6 mg/dL (0.3-1.0); Blood Urea Nitrogen 32 mg/dL (8-23); Calcium 9.1 mg/dL (8.6-10.3); Carbon Dioxide 34 mEq/L (23-29); Chloride 93 mEq/L (98-107); Globulin 2.3 g/dL (2.4-3.5); Glucose 155 mg/dL (70-105); Magnesium 2.2 mg/dL (1.6-2.6); Osmolality,Calculated 288 (280-300); Phosphorous 4.2 mg/dL (2.7-4.5); Potassium 3.8 mEq/L (3.5-5.1); Sodium 134 mEq/L (136-145); Total Protein 5.8 g/dL (6.4-8.9); eGFR For African Americans > 60 (> 60); eGFR For Non-African Americans > 60 (> 60)
[2018-12-29] MEDS: Saline Nasal Spray 44 ML BOTTLE NS PRN ×2 (06:37→20:32)
[2018-12-29] MEDS: Furosemide 20 MG/2 ML VIAL IVP SCH ×2 (08:45→16:39)
[2018-12-29] MEDS: DilTIAZem CD (24hr) 120 MG CAP.ER.24H PO SCH (08:45)
[2018-12-29] MEDS: Aspirin 81 MG TAB.CHEW PO SCH (08:45)
[2018-12-29] MEDS: Apixaban 5 MG TABLET PO SCH ×2 (08:46→20:31)
[2018-12-29] MEDS: Insulin LISPRO 300 UNITS/3 ML VIAL SQ SCH ×3 (08:51→16:38)
[2018-12-30] MEDS: Gabapentin 300 MG CAPSULE PO SCH ×3 (01:47→17:36)
[2018-12-30] MEDS ORDERED: Furosemide 20 MG TABLET PO PRN (09:15)
[2018-12-30] MEDS: Insulin LISPRO 300 UNITS/3 ML VIAL SQ SCH ×3 (10:14→16:30)
[2018-12-30] MEDS: Apixaban 5 MG TABLET PO SCH ×2 (10:14→19:34)
[2018-12-30] MEDS: DilTIAZem CD (24hr) 120 MG CAP.ER.24H PO SCH (10:14)
[2018-12-30] MEDS: Aspirin 81 MG TAB.CHEW PO SCH (10:14)
[2018-12-30] MEDS: Furosemide 20 MG/2 ML VIAL IVP SCH (12:07)
[2018-12-31] MEDS: Gabapentin 300 MG CAPSULE PO SCH ×2 (01:08→10:14)
[2018-12-31 01:39] LABS: Hematocrit 28.3 % (35.3-44.9); Hemoglobin 9.1 g/dL (11.5-15.4); Mean Corpuscular HGB Conc 32.2 g/dL (31.6-35.5); Mean Corpuscular Hemoglobin 33.2 pg (28.0-33.3); Mean Corpuscular Volume 103.3 fL (83.0-100.0); Platelet Count 119 K/mcL (140-400); Red Blood Count 2.74 M/mcL (3.82-4.97); White Blood Count 8.7 K/mcL (4.3-11.1)
[2018-12-31 01:58] LABS: Alanine Aminotransferase 11 Units/L (7-52); Albumin 3.5 g/dL (3.5-5.7); Albumin/Globulin Ratio 1.5 (1.1-2.2); Alkaline Phosphatase 49 Units/L (34-104); Aspartate Amino Transferase 8 Units/L (13-39); BUN/Creatinine Ratio 51 (6-26); Bilirubin,Total 0.7 mg/dL (0.3-1.0); Blood Urea Nitrogen 32 mg/dL (8-23); Carbon Dioxide 36 mEq/L (23-29); Chloride 94 mEq/L (98-107); Globulin 2.3 g/dL (2.4-3.5); Glucose 155 mg/dL (70-105); Magnesium 2.2 mg/dL (1.6-2.6); Osmolality,Calculated 296 (280-300); Phosphorous 3.9 mg/dL (2.7-4.5); Potassium 3.8 mEq/L (3.5-5.1); Sodium 138 mEq/L (136-145); Total Protein 5.8 g/dL (6.4-8.9); eGFR For African Americans > 60 (> 60); eGFR For Non-African Americans > 60 (> 60)
[2018-12-31 07:48] VITALS: BP 102/64
[2018-12-31] MEDS ORDERED: *HR* Metformin 500 MG TABLET PO SCH (08:00)
[2018-12-31] MEDS: Insulin LISPRO 300 UNITS/3 ML VIAL SQ SCH (09:18)
[2018-12-31] MEDS: DilTIAZem CD (24hr) 120 MG CAP.ER.24H PO SCH (10:14)
[2018-12-31] MEDS: Aspirin 81 MG TAB.CHEW PO SCH (10:14)
[2018-12-31] MEDS: Apixaban 5 MG TABLET PO SCH (10:14)
== END 2018-12-31 12:28 | DRG 299 ==
LOC: 3NENU → SUATTDRO 20:20 → 3BNU 12-25 14:24
PROVIDERS: ADMIT Internal Medicine; ATTEND Internal Medicine